=== PATIENT | male | born 1940 | race Caucasian/White ===

== ENCOUNTER → 2018-11-21 | Outpatient (CLI) | payer MEDICARE ==
--- NOTE | 2018-11-21 09:06 | RADIOLOGY REPORT (SQ) ---
EXAM DESCRIPTION: CT CHEST WITH; CT ABD/PELVIS WITH IV ONLY COMPLETED DATE/TIME: 11/21/2018 8:29 am; 11/21/2018 8:19 am REASON FOR STUDY: PROSTATE CA (C61) C61 MALIGNANT NEOPLASM OF PROSTATE COMPARISON: NO PRIOR IMAGING CONTRAST TYPE AND DOSE: contrast/concentration: Isovue 350.00 mg/ml; Total Contrast Delivered: 100.0 ml; Total Saline Delivered: 72.0 ml RENAL FUNCTION: Creatinine 1.4 TECHNIQUE: CT scan of the chest performed using helical scanning technique with dynamic intravenous contrast injection. Images reviewed with lung, soft tissue and bone windows. Reconstructed coronal a nd sagittal MPR images reviewed. All images stored on PACS. CT scan of the abdomen and pelvis performed with intravenous and without oral contrastusing helical s laney technique with dynamic intravenous contrast injection. Images reviewed with lung, soft tissu e and bone windows. Reconstructed coronal and sagittal MPR images reviewed. Delayed images for eval uation of the urinary system also acquired and evaluated. All images stored on PACS. All CT scanners at this facility use dose modulation, iterative reconstruction, and/or weight based d osing when appropriate to reduce radiation dose to as low as reasonably achievable (ALARA). [facility]: Dose Right [facility]: CareDose [facility]: Dose Right [facility]: Teradose 4D [facility]: [employer] RADIATION DOSE: CT Rad equipment meets quality standard of care and radiation dose reduction techniq ues were employed. CTDIvol: 7.0 - 10.2 mGy. DLP: 1398 mGy-cm. . LIMITATIONS: None. FINDINGS: CHEST: LUNGS AND PLEURA: Calcified granuloma left lower lobe. Lungs are otherwise clear. No pleural effusion. No pneumothorax. Airways are patent. HILAR AND MEDIASTINAL STRUCTURES: No identified masses or abnormal nodes. Old benign calcified sub- carinal and left hilar lymph nodes from old granulomatous disease. HEART AND VASCULAR STRUCTURES: No aneurysm or dissection. No central pulmonary emboli. No pericardi al effusion. Minimal calcification at the aortic valve and mitral valve. HARDWARE: None. THYROID AND OTHER SOFT TISSUES: No masses. No adenopathy. BONES: No significant finding. OTHER: No other significant finding. ABDOMEN AND PELVIS: LIVER: Normal size. No masses. No dilated ducts. SPLEEN: Normal size. No focal lesions. PANCREAS: 4 x 2.6 cm cluster of cysts versus cystic mass is present in the tail of the pancreas [facility] . Remainder the pancreas splenic vein, superior mesenteric artery and vein are unremarkable. No adjacent adenopathy GALLBLADDER: Gallstones. No inflammatory changes to suggest cholecystitis. ADRENAL GLANDS: No significant masses or asymmetry. RIGHT KIDNEY AND URETER: No solid masses. No significant calcification. No hydronephrosis or hydroure ter. LEFT KIDNEY AND URETER: No solid masses. No significant calcification. No hydronephrosis or hydrouret er. AORTA AND VESSELS: No aneurysm. No dissection. Renal arteries, SMA, celiac without stenosis. RETROPERITONEUM: No retroperitoneal adenopathy, hemorrhage or masses. BOWEL AND PERITONEAL CAVITY: No masses or inflammatory changes. No free fluid or peritoneal masses. APPENDIX: Normal. ABDOMINAL WALL: There is a right inguinal hernia containing the bladder dome, best shown on axial carlos ges 73-93, coronal images 20-35, and sagittal reconstruction image 33. PELVIS: Right inguinal hernia containing the bladder dome. Prostate within normal limits for size. No pelvic adenopathy. Bladder, rectum unremarkable. BONES: No significant or acute findings. OTHER: No other significant finding. IMPRESSION: Next no CT evidence of widespread metastatic disease given history of prostate cancer Right inguinal hernia containing the bladder dome 4 x 2.6 cm cluster of cysts versus cystic mass at the pancreatic tail. NORMAL CT OF THE ABDOMEN AND PELVIS WITH ORAL AND INTRAVENOUS CONTRAST. TECHNICAL DOCUMENTATION: JOB ID: [id number] Quality ID # 436: Final reports with documentation of one or more dose reduction techniques (e.g., Au tomated exposure control, adjustment of the mA and/or kV according to patient size, use of iterative reconstruction technique) 2010 [employer]- All Rights Reserved Reading location - IP/workstation name: [email or web address]
--- NOTE | 2018-11-21 16:03 | RADIOLOGY REPORT (SQ) ---
EXAM DESCRIPTION: NM WHOLE BODY BONE SCAN COMPLETED DATE/TIME: 11/21/2018 12:43 pm REASON FOR STUDY: PROSTATE CA (C61 C61 MALIGNANT NEOPLASM OF PROSTATE COMPARISON: 11/21/2018 CT chest abdomen pelvis RADIONUCLIDE AND DOSE: 20.6 millicuries Tc99m MDP. The route of agent administration: Intravenous. ADDITIONAL DRUGS AND DOSES: None. TECHNIQUE: Routine delayed images at 3 hour post radionuclide injection acquired of the bony skeleto n including anterior and posterior whole-body projections and additional focused images as needed. LIMITATIONS: None. FINDINGS: BONES: No bone scan uptake worrisome for metastatic disease. Minimal uptake in the AC ashley nts, bilateral knees, bilateral wrists, and lumbar spine in characteristic locations for osteoarthrit is KIDNEYS: Symmetric excretion without obstruction. OTHER: No other significant finding. IMPRESSION: NORMAL BONE SCAN. COMMENT: Quality measure 147: Current bone scan is compared with any available plain radiographs, p rior bone scans, and CT/MRI. TECHNICAL DOCUMENTATION: JOB ID: [id number] [employer]- All Rights Reserved Reading location - IP/workstation name: [email or web address]
== END ==
LOC: RAD 07:39
PROVIDERS: ATTEND Internal Medicine
DX: C61 Malignant neoplasm of prostate (principal)
CPT/HCPCS: 82565; 78306; 71260; 74177; A9561; Q9969

== ENCOUNTER → 2019-02-16 | Outpatient (CLI) | payer MEDICARE ==
--- NOTE | 2019-02-16 12:44 | RADIOLOGY REPORT (SQ) ---
EXAM DESCRIPTION: CT CHEST WITH; CT ABD/PELVIS WITH IV ONLY COMPLETED DATE/TIME: 02/16/2019 9:52 am REASON FOR STUDY: C61 MALIGNANT NEOPLASM OF PROSTATE C61 MALIGNANT NEOPLASM OF PROSTATE COMPARISON: Bone scan 11/21/2018, CT abdomen pelvis 11/21/2018 CONTRAST TYPE AND DOSE: contrast/concentration: Isovue 350.00 mg/ml; Total Contrast Delivered: 100.0 ml; Total Saline Delivered: 72.0 ml RENAL FUNCTION: Creatinine 1.3 TECHNIQUE: CT scan of the chest performed using helical scanning technique with dynamic intravenous contrast injection. Images reviewed with lung, soft tissue and bone windows. Reconstructed coronal a nd sagittal MPR images reviewed. All images stored on PACS. CT scan of the abdomen and pelvis performed with intravenous and without oral contrastusing helical s laney technique with dynamic intravenous contrast injection. Images reviewed with lung, soft tissu e and bone windows. Reconstructed coronal and sagittal MPR images reviewed. Delayed images for eval uation of the urinary system also acquired and evaluated. All images stored on PACS. All CT scanners at this facility use dose modulation, iterative reconstruction, and/or weight based d osing when appropriate to reduce radiation dose to as low as reasonably achievable (ALARA). [facility]: Dose Right [facility]: CareDose [facility]: Dose Right [facility]: Teradose 4D [facility]: [employer] RADIATION DOSE: CT Rad equipment meets quality standard of care and radiation dose reduction techniq ues were employed. CTDIvol: 7.9 - 10.3 mGy. DLP: 1472 mGy-cm. . LIMITATIONS: None. FINDINGS: CHEST: LUNGS AND PLEURA: No opacities, nodules, masses. No pneumothorax. No effusions. HILAR AND MEDIASTINAL STRUCTURES: Old calcified benign lymph nodes in the sub- carinal and left hilar region from granulomatous disease HEART AND VASCULAR STRUCTURES: No aneurysm or dissection. No central pulmonary emboli. No pericardi al effusion. HARDWARE: None. THYROID AND OTHER SOFT TISSUES: No masses. No adenopathy. BONES: No significant finding. OTHER: No other significant finding. ABDOMEN AND PELVIS: LIVER: Normal size. No masses. No dilated ducts. SPLEEN: Normal size. No focal lesions. PANCREAS: 4 x 2.5 cm cluster of versus cystic mass at the tail of the pancreas is unchanged from 2018. No peripancreatic inflammatory changes. Pancreatic duct upper limits of normal. GALLBLADDER: Gallstones. No inflammatory changes to suggest cholecystitis. ADRENAL GLANDS: No significant masses or asymmetry. RIGHT KIDNEY AND URETER: No solid masses. No significant calcification. No hydronephrosis or hydroure ter. LEFT KIDNEY AND URETER: No solid masses. No significant calcification. No hydronephrosis or hydrouret er. AORTA AND VESSELS: No aneurysm. No dissection. Renal arteries, SMA, celiac without stenosis. RETROPERITONEUM: No retroperitoneal adenopathy, hemorrhage or masses. BOWEL AND PERITONEAL CAVITY: No masses or inflammatory changes. No free fluid or peritoneal masses. APPENDIX: Normal. ABDOMINAL WALL: There is a right inguinal hernia containing distal nonobstructed small bowel loops. PELVIS: No mass or free fluid. Normal bladder. No pelvic adenopathy BONES: No significant or acute findings. OTHER: No other significant finding. IMPRESSION: No CT evidence of metastatic disease to the chest abdomen or pelvis given history of [place] TECHNICAL DOCUMENTATION: JOB ID: [id number] Quality ID # 436: Final reports with documentation of one or more dose reduction techniques (e.g., Au tomated exposure control, adjustment of the mA and/or kV according to patient size, use of iterative reconstruction technique) 2010 [employer]- All Rights Reserved Reading location - IP/workstation name: [email or web address]
== END ==
LOC: RAD 09:03
PROVIDERS: ATTEND Internal Medicine Hematology & Oncology
DX: C61 Malignant neoplasm of prostate (principal)
CPT/HCPCS: 71260; 74177; 82565

== ENCOUNTER → 2019-05-22 | Outpatient (CLI) | payer MEDICARE ==
--- NOTE | 2019-05-22 08:48 | RADIOLOGY REPORT (SQ) ---
EXAM DESCRIPTION: CT CHEST WITH COMPLETED DATE/TIME: 05/22/2019 8:19 am REASON FOR STUDY: PROSTATE CA (C61) C61 MALIGNANT NEOPLASM OF PROSTATE COMPARISON: 11/21/2018 TECHNIQUE: CT scan of the chest performed using helical scanning technique with dynamic intravenous contrast injection. Images reviewed with lung, soft tissue and bone windows. Reconstructed coronal and sagittal MPR and MIP images reviewed. All images stored on PACS. All CT scanners at this facility use dose modulation, iterative reconstruction, and/or weight based d osing when appropriate to reduce radiation dose to as low as reasonably achievable (ALARA). [facility]: Dose Right [facility]: CareDose [facility]: Dose Right [facility]: Teradose 4D [facility]: [employer] CONTRAST TYPE AND DOSE: See abdomen RENAL FUNCTION: See abdomen RADIATION DOSE: CT Rad equipment meets quality standard of care and radiation dose reduction techniq ues were employed. CTDIvol: 8.0 - 12.8 mGy. DLP: 1673 mGy-cm. . LIMITATIONS: None. FINDINGS: LUNGS AND PLEURA: No opacities, nodules, masses. No pneumothorax. No effusions. HILAR AND MEDIASTINAL STRUCTURES: Calcified mediastinal and hilar lymph nodes, stable. No new adenop athy. HEART AND VASCULAR STRUCTURES: No aneurysm. No dissection. Scattered coronary normal heart size. N o significant effusion. HARDWARE: None in the chest. UPPER ABDOMEN: See separate report of the CT of the abdomen. THYROID AND OTHER SOFT TISSUES: No masses. No adenopathy. BONES: No new lytic or blastic osseous lesions. Multilevel bulky anterior osteophytes. No acute bon y abnormality. OTHER: No other significant finding. IMPRESSION: No evidence of intrathoracic metastatic disease. No acute intrathoracic process. Chronic findings as above. TECHNICAL DOCUMENTATION: JOB ID: [id number] Quality ID # 436: Final reports with documentation of one or more dose reduction techniques (e.g., Au tomated exposure control, adjustment of the mA and/or kV according to patient size, use of iterative reconstruction technique) 2010 [employer] All Rights Reserved Reading location - IP/workstation name: [email or web address]-
--- NOTE | 2019-05-22 09:11 | RADIOLOGY REPORT (SQ) ---
EXAM DESCRIPTION: CT ABD/PELVIS WITH IV ONLY COMPLETED DATE/TIME: 05/22/2019 8:19 am REASON FOR STUDY: PROSTATE CA (C61) C61 MALIGNANT NEOPLASM OF PROSTATE COMPARISON: 02/16/2019 TECHNIQUE: CT scan of the abdomen and pelvis performed using helical scanning technique with dynamic intravenous contrast injection. No oral contrast. Images reviewed with lung, soft tissue, and bone windows. Reconstructed coronal and sagittal MPR images reviewed. Delayed images for evaluation of the urinary system also acquired. All images stored on PACS. All CT scanners at this facility use dose modulation, iterative reconstruction, and/or weight based d osing when appropriate to reduce radiation dose to as low as reasonably achievable (ALARA). [facility]: Dose Right [facility]: CareDose [facility]: Dose Right [facility]: Teradose 4D [facility]: [employer] CONTRAST TYPE AND DOSE: contrast/concentration: Isovue 350.00 mg/ml; Total Contrast Delivered: 100.0 ml; Total Saline Delivered: 72.0 ml RENAL FUNCTION: GFR > 60. RADIATION DOSE: 1673 mGy cm LIMITATIONS: None. FINDINGS: LOWER CHEST: See separate report of the CT of the chest. LIVER: Normal size. No masses. No dilated ducts. SPLEEN: Normal size. No focal lesions. PANCREAS: No masses. No significant calcifications. No adjacent inflammation or peripancreatic fluid collections. Pancreatic duct not dilated. GALLBLADDER: Small gallstone in the gallbladder. ADRENAL GLANDS: No significant masses or asymmetry. RIGHT KIDNEY AND URETER: No solid masses. No significant calcifications. No hydronephrosis or hyd roureter. LEFT KIDNEY AND URETER: No solid masses. No significant calcifications. No hydronephrosis or hydr oureter. AORTA AND VESSELS: No aneurysm. No dissection. Renal arteries, SMA, celiac without stenosis. Calcifi c atherosclerosis. RETROPERITONEUM: No retroperitoneal adenopathy, hemorrhage or masses. BOWEL AND PERITONEAL CAVITY: No masses or inflammatory changes. No free fluid or peritoneal masses. APPENDIX: Normal. PELVIS: No mass. No free fluid. Normal bladder. ABDOMINAL WALL: No masses. Large right inguinal hernia containing sigmoid colon and bladder. BONES: No significant or acute findings. OTHER: No other significant finding. IMPRESSION: 1. No CT evidence of pelvic mass, lymphadenopathy, or osseous metastatic disease in the setting of prostate malignancy. 2. Chronic incidental findings as above. TECHNICAL DOCUMENTATION: JOB ID: [id number] Quality ID # 436: Final reports with documentation of one or more dose reduction techniques (e.g., Au tomated exposure control, adjustment of the mA and/or kV according to patient size, use of iterative reconstruction technique) 2010 [employer]- All Rights Reserved Reading location - IP/workstation name: [email or web address]
--- NOTE | 2019-05-22 12:31 | RADIOLOGY REPORT (SQ) ---
EXAM DESCRIPTION: NM WHOLE BODY BONE SCAN COMPLETED DATE/TIME: 05/22/2019 11:51 am REASON FOR STUDY: PROSTATE CA (C61 C61 MALIGNANT NEOPLASM OF PROSTATE COMPARISON: 11/21/2018 RADIONUCLIDE AND DOSE: 20 millicuries Tc99m HDP. The route of agent administration: Intravenous. ADDITIONAL DRUGS AND DOSES: None. TECHNIQUE: Routine delayed images at 4 hours post radionuclide injection acquired of the bony skelet on including anterior and posterior whole-body projections and additional focused images as needed. LIMITATIONS: None. FINDINGS: BONES: Mild degenerative uptake in the shoulders and knees and spine. No other significan t areas of abnormal uptake. KIDNEYS: Symmetric excretion without obstruction. OTHER: No other significant finding. IMPRESSION: Findings as above. There is no evidence of metastatic disease to bone. There is no sig nificant interval change. COMMENT: Quality measure 147: Current bone scan is compared with any available plain radiographs, p rior bone scans, and CT/MRI. TECHNICAL DOCUMENTATION: JOB ID: [id number] [employer]- All Rights Reserved Reading location - IP/workstation name: [email or web address]
== END ==
LOC: RAD 07:36
PROVIDERS: ATTEND Physician Assistant Medical
DX: C61 Malignant neoplasm of prostate (principal); K40.90 Unilateral inguinal hernia, without obstruction or gangrene, not specified as recurrent
CPT/HCPCS: 82565; 78306; 71260; 74177; A9561; Q9969

== ENCOUNTER → 2019-11-16 | Outpatient (CLI) | payer MEDICARE ==
--- NOTE | 2019-11-16 09:23 | RADIOLOGY REPORT (SQ) ---
EXAM DESCRIPTION: CT ABD/PELVIS WITH IV ONLY IMAGES COMPLETED DATE/TIME: 11/16/2019 8:30 am REASON FOR STUDY: C61 MALIGNANT NEOPLASM OF PROSTATE C61 MALIGNANT NEOPLASM OF PROSTATE COMPARISON: 05/22/2019 TECHNIQUE: CT scan of the abdomen and pelvis performed using helical scanning technique with dynamic intravenous contrast injection. No oral contrast. Images reviewed with lung, soft tissue, and bone windows. Reconstructed coronal and sagittal MPR images reviewed. Delayed images for evaluation of the urinary system also acquired. All images stored on PACS. All CT scanners at this facility use dose modulation, iterative reconstruction, and/or weight based d osing when appropriate to reduce radiation dose to as low as reasonably achievable (ALARA). [facility]: Dose Right [facility]: CareDose [facility]: Dose Right [facility]: Teradose 4D [facility]: [employer] CONTRAST TYPE AND DOSE: contrast/concentration: Isovue 350.00 mg/ml; Total Contrast Delivered: 100.0 ml; Total Saline Delivered: 72.0 ml RENAL FUNCTION: Creatinine 1.2 RADIATION DOSE: CT Rad equipment meets quality standard of care and radiation dose reduction techniq ues were employed. CTDIvol: 9.2 - 14.2 mGy. DLP: 1895 mGy-cm.. LIMITATIONS: None. FINDINGS: LOWER CHEST: See separate report of the CT of the chest. LIVER: Normal size. No masses. No dilated ducts. SPLEEN: Normal size. Scattered calcified granuloma. PANCREAS: Unchanged 4 x 2.5 cm cluster of cystic lesions within the pancreatic tail from 11/21/18 (seri es 3, image 22). No peripancreatic stranding. GALLBLADDER: Small stone within the gallbladder lumen. No secondary evidence of acute cholecystitis. ADRENAL GLANDS: No significant masses or asymmetry. RIGHT KIDNEY AND URETER: No discrete solid mass. Diffuse cortical thinning. No significant calcifi cations. No hydronephrosis or hydroureter. LEFT KIDNEY AND URETER: No discrete solid mass. Diffuse cortical thinning. No significant calcific ations. No hydronephrosis or hydroureter. AORTA AND VESSELS: Aortoiliac atherosclerosis without aneurysm. Celiac, SMA, bilateral renals and IM A are opacified. RETROPERITONEUM: No discrete adenopathy. BOWEL AND PERITONEAL CAVITY: Small hiatal hernia. No evidence of intestinal obstruction. No focal b owel wall thickening. There is a right inguinal hernia containing a portion of the urinary bladder a nd loops of small bowel. APPENDIX: Appendix is not identified. PELVIS: Right bowel and bladder containing inguinal hernia. Left fat containing inguinal hernia. Un changed calcification within the prostate. No discrete adenopathy. ABDOMINAL WALL: Hernias as above. No discrete soft tissue mass. BONES: No acute bony abnormality. No discrete lytic or blastic osseous lesions. Unchanged sacral Ta rlov cyst. OTHER: No other significant finding. IMPRESSION: 1. No definitive evidence of metastatic disease within the abdomen or pelvis. 2. Unchanged 4 x 2.5 cm cystic lesion within the pancreatic tail from 11/21/2018. 3. Right inguinal hernia containing a portion of the urinary bladder loop of small bowel, stable. A dditional chronic findings as above. TECHNICAL DOCUMENTATION: JOB ID: [id number] Quality ID # 436: Final reports with documentation of one or more dose reduction techniques (e.g., Au tomated exposure control, adjustment of the mA and/or kV according to patient size, use of iterative reconstruction technique) 2010 [employer]- All Rights Reserved Reading location - IP/workstation name: [email or web address]
--- NOTE | 2019-11-16 09:28 | RADIOLOGY REPORT (SQ) ---
EXAM DESCRIPTION: CT CHEST WITH IMAGES COMPLETED DATE/TIME: 11/16/2019 8:41 am REASON FOR STUDY: C61 MALIGNANT NEOPLASM OF PROSTATE C61 MALIGNANT NEOPLASM OF PROSTATE COMPARISON: 05/22/2019 TECHNIQUE: CT scan of the chest performed using helical scanning technique with dynamic intravenous contrast injection. Images reviewed with lung, soft tissue and bone windows. Reconstructed coronal and sagittal MPR and MIP images reviewed. All images stored on PACS. All CT scanners at this facility use dose modulation, iterative reconstruction, and/or weight based d osing when appropriate to reduce radiation dose to as low as reasonably achievable (ALARA). [facility]: Dose Right [facility]: CareDose [facility]: Dose Right [facility]: Teradose 4D [facility]: [employer] CONTRAST TYPE AND DOSE: See abdomen RENAL FUNCTION: See abdomen RADIATION DOSE: . LIMITATIONS: None. FINDINGS: LUNGS AND PLEURA: No focal airspace disease. No pleural effusion or pneumothorax. Unchan ged calcified left lower lobe granuloma. HILAR AND MEDIASTINAL STRUCTURES: No new discrete mediastinal or hilar adenopathy. Stable calcified left hilar and mediastinal adenopathy. HEART AND VASCULAR STRUCTURES: Scattered coronary atherosclerosis. No pericardial effusion. Cardiom egaly, stable. HARDWARE: None in the chest. UPPER ABDOMEN: See separate report of the CT of the abdomen. THYROID AND OTHER SOFT TISSUES: No masses. No adenopathy. BONES: No acute bony abnormality. No discrete lytic or blastic osseous lesions. Multilevel thoracol umbar spondylosis. OTHER: No other significant finding. IMPRESSION: 1. No evidence of metastatic disease within the chest. 2. No evidence of acute intrathoracic process. TECHNICAL DOCUMENTATION: JOB ID: [id number] Quality ID # 436: Final reports with documentation of one or more dose reduction techniques (e.g., Au tomated exposure control, adjustment of the mA and/or kV according to patient size, use of iterative reconstruction technique) 2010 [employer]- All Rights Reserved Reading location - IP/workstation name: [email or web address]
--- NOTE | 2019-11-16 13:04 | RADIOLOGY REPORT (SQ) ---
EXAM DESCRIPTION: NM WHOLE BODY BONE SCAN IMAGES COMPLETED DATE/TIME: 11/16/2019 12:22 pm REASON FOR STUDY: C61 MALIGNANT NEOPLASM OF PROSTATE, K86.9 DISEASE OF PANCREAS, UNSPECIFIED C61 MA LIGNANT NEOPLASM OF PROSTATE COMPARISON: 05/22/2019 bone scan, same day CT RADIONUCLIDE AND DOSE: 1.5 millicuries Tc99m HDP. The route of agent administration: Intravenous. ADDITIONAL DRUGS AND DOSES: None. TECHNIQUE: Routine delayed images at 4 hour post radionuclide injection acquired of the bony skeleto n including anterior and posterior whole-body projections and additional focused images as needed. LIMITATIONS: None. FINDINGS: BONES: Mild uptake at the shoulders knees and ankles in a pattern most consistent with deg enerative change. Mild additional changes along the right thoracolumbar spine likely corresponding t o known multilevel osteophytosis and similar to prior. Otherwise, normal visualization without areas of photopenia or increased bony uptake of radiopharmaceutical. KIDNEYS: Symmetric excretion without obstruction. OTHER: No other significant finding. IMPRESSION: No findings to suggest osseous metastatic disease. COMMENT: Quality measure 147: Current bone scan is compared with any available plain radiographs, p rior bone scans, and CT/MRI. TECHNICAL DOCUMENTATION: JOB ID: [id number] 2010 [employer]- All Rights Reserved Reading location - IP/workstation name: [email or web address]
== END ==
LOC: RAD 07:57
PROVIDERS: ATTEND Physician Assistant Medical
DX: C61 Malignant neoplasm of prostate (principal); C79.51 Secondary malignant neoplasm of bone; K86.9 Disease of pancreas, unspecified; K80.20 Calculus of gallbladder without cholecystitis without obstruction; K40.90 Unilateral inguinal hernia, without obstruction or gangrene, not specified as recurrent
CPT/HCPCS: 82565; 78306; 71260; 74177; A9561; Q9969

== ENCOUNTER → 2020-05-29 | Outpatient (CLI) | payer MEDICARE ==
--- NOTE | 2020-05-29 13:18 | RADIOLOGY REPORT (SQ) ---
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 Images reviewed with lung, soft tissue and bone windows. Reconstructed coronal and sagittal MPR and MIP images reviewed. All images stored on PACS. All CT scanners at this facility use dose modulation, iterative reconstruction, and/or weight based d osing when appropriate to reduce radiation dose to as low as reasonably achievable (ALARA). [facility]: Dose Right [facility]: CareDose [facility]: Dose Right [facility]: Teradose 4D [facility]: [employer] RENAL FUNCTION: GFR > 60. RADIATION DOSE: CT Rad equipment meets quality standard of care and radiation dose reduction techniq ues were employed. CTDIvol: 9.6 - 13.6 mGy. DLP: 1985 mGy-cm. . LIMITATIONS: None. FINDINGS: LUNGS AND PLEURA: No opacities, nodules, masses. No pneumothorax. No effusions. HILAR AND MEDIASTINAL STRUCTURES: No identified masses or abnormal nodes. HEART AND VASCULAR STRUCTURES: No aneurysm or dissection. No central pulmonary emboli. No pericardi al effusion. HARDWARE: None in the chest. UPPER ABDOMEN: See separate report of the CT of the abdomen. THYROID AND OTHER SOFT TISSUES: No masses. No adenopathy. BONES: No acute findings. OTHER: No other significant finding. IMPRESSION: No evidence of metastatic disease. TECHNICAL DOCUMENTATION: JOB ID: [id number] Quality ID # 436: Final reports with documentation of one or more dose reduction techniques (e.g., Au tomated exposure control, adjustment of the mA and/or kV according to patient size, use of iterative reconstruction technique) 2010 [employer]- All Rights Reserved Reading location - IP/workstation name: [email or web address]
--- NOTE | 2020-05-29 13:34 | RADIOLOGY REPORT (SQ) ---
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 No oral contrast. Images reviewed with lung, soft tissue, and bone windows. Reconstructed coronal and sagittal MPR images reviewed. Delayed images for evaluation of the urinary system also acquired. All images stored on PACS. All CT scanners at this facility use dose modulation, iterative reconstruction, and/or weight based d osing when appropriate to reduce radiation dose to as low as reasonably achievable (ALARA). [facility]: Dose Right [facility]: CareDose [facility]: Dose Right [facility]: Teradose 4D [facility]: [employer] CONTRAST TYPE AND DOSE: contrast/concentration: Isovue 350.00 mmol/ml; Total Contrast Delivered: 100 .0 ml; Total Saline Delivered: 72.0 ml RENAL FUNCTION: GFR > 60. RADIATION DOSE: . LIMITATIONS: None. FINDINGS: LOWER CHEST: See separate report of the CT of the chest. LIVER: Normal size. No masses. No dilated ducts. SPLEEN: Normal size. No focal lesions. PANCREAS: Unchanged cluster of cystic lesions in the pancreatic tail. GALLBLADDER: Gallstones. No inflammatory changes to suggest cholecystitis. ADRENAL GLANDS: No significant masses or asymmetry. RIGHT KIDNEY AND URETER: No solid masses. No significant calcifications. No hydronephrosis or hyd roureter. LEFT KIDNEY AND URETER: No solid masses. No significant calcifications. No hydronephrosis or hydr oureter. AORTA AND VESSELS: No aneurysm. No dissection. Renal arteries, SMA, celiac without stenosis. RETROPERITONEUM: No retroperitoneal adenopathy, hemorrhage or masses. BOWEL AND PERITONEAL CAVITY: No masses or inflammatory changes. No free fluid or peritoneal masses. APPENDIX: Not visualized. PELVIS: No pelvic adenopathy. Unchanged appearance of right inguinal hernia containing bowel and por tion of the bladder. ABDOMINAL WALL: See above. BONES: No significant or acute findings. OTHER: No other significant finding. IMPRESSION: 1. No evidence of metastatic disease. 2. Stable cystic lesion tail of the pancreas. TECHNICAL DOCUMENTATION: JOB ID: [id number] Quality ID # 436: Final reports with documentation of one or more dose reduction techniques (e.g., Au tomated exposure control, adjustment of the mA and/or kV according to patient size, use of iterative reconstruction technique) 2010 [employer]- All Rights Reserved Reading location - IP/workstation name: [email or web address]
--- NOTE | 2020-05-29 14:18 | RADIOLOGY REPORT (SQ) ---
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 The route of agent administration: Intravenous. ADDITIONAL DRUGS AND DOSES: None. TECHNIQUE: Routine delayed images at 3 hours post radionuclide injection acquired of the bony skelet on including anterior and posterior whole-body projections and additional focused images as needed. LIMITATIONS: None. FINDINGS: BONES: There is no change in the appearance of the bones. There is what is felt to be mil d degenerative uptake in the shoulders and spine and knees. KIDNEYS: Symmetric excretion without obstruction. OTHER: No other significant finding. IMPRESSION: There is uptake that is stable and is felt to be degenerative. The overall appearance o f the scan does not suggest metastatic disease to bone. COMMENT: Quality measure 147: Current bone scan is compared with any available plain radiographs, p rior bone scans, and CT/MRI. TECHNICAL DOCUMENTATION: JOB ID: [id number] 2010 [employer]- All Rights Reserved Reading location - IP/workstation name: [email or web address]
--- OUTSIDE RECORDS SUMMARY | 2020-05-30 14:58 | XMS REPORT ---
:1940 [facility] [place] [address] [place] [id number] Care Team Providers Name Role Phone Rodrick Brown Attending Clinician Unavailable Allergies, Adverse Reactions, Alerts Allergy Name Allergy Status Severity Reaction(s) Onset Inactive Treat ing Comments Type Date Date Clinician Hydrocodone Allergy Active to Drug (Finding) Oxycodone Allergy Active to Drug (Finding) Medications Ordered Filled Start Stop Current Ordering Indication Dosage Frequency Signature Comments Components Medication Medication Date Date Medication? Clinician (SIG) Name Name Eligard 2019-1 No 0-20 00:00: 00 Influenza 2019- 2020- No .5mL QIV 0-20 - 00:00: 00:00 00 :00 Eligard 2019-1 2020- No 22.5mg Eligard 0-20 05-06 00:00: 00:00 00 :00 Leuprolide 2020-0 No 22.5mg Leuprolide Acetate 7-16 Acetate 00:00: 00 Leuprolide 2019-0 No 22.5mg Leuprolide Acetate 4-23 Acetate 00:00: 00 Leuprolide 2020-0 No 22.5mg Leuprolide Acetate 1-30 Acetate 00:00: 00 Leuprolide 2019-1 No 22.5mg Leuprolide Acetate 1-04 Acetate 00:00: 00 Leuprolide 2019-0 No 22.5mg Leuprolide Acetate 8-09 Acetate 00:00: 00 Leuprolide 2019-0 No 22.5mg Leuprolide Acetate 5-10 Acetate 00:00: 00 XGEVA 2019-0 2020- No 120mg (Denosumab) 2-15 10-20 00:00: 00:00 00 :00 Leuprolide 2019-0 2020- No 22.5mg Leuprolide Acetate 2-15 07-16 Acetate 00:00: 00:00 00 :00 BusPIRone 2019-0 2019- No 1 HCl 2-15 05-29 00:00: 14:20 00 :09 Acetaminoph Yes 1 en Alphagan P Yes 1 Atorvastati Yes 1 n Calcium Atorvastati Yes 1 n Calcium BusPIRone Yes 1 HCl Coreg Yes 1 Norvasc Yes 1 Refresh Yes 1 Sertraline Yes 1 HCl Acetaminoph No 1 en Bicalutamid 2019- No 1 e 05-29 14:21 :25 Lutein 2019- No 2 05-29 14:21 :53 Resveratrol 2019- No 2 Diet 05-29 14:22 :11 Problems Condition Condition Condition Status Onset Resolution Last Treatin g Comments Name Details Category Date Date Treatment Clinician Date Patient Patient Diagnosis active 2019-07 encounter encounter 0-20 status status 00:00: 00 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 5-10 00:00: 00 Dysuria Dysuria Diagnosis active 10-27 00:00: 00 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 Secondary Secondary Diagnosis 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 Procedures Procedure Date / Time Performed Performing Clinician [place] e Prostate bx Cataract Hand surgery Hernia Results Test Description Test Time Test Comments Text Results Atomic Results Result Comments PSA 2020-05-06 13:20:00 Test Item Value Reference Range Comments PSA (test code = PSA) 0.1000 ng/mL 0.0000-4.0000 [id number] 12:50:00 Test Item Value Reference Range Comments WBC (test code = WBC) 7.3000 4.0000-10.0000 Lymphocytes % (test code = Lymphocytes %) 24.1000 % 22.400 0-43.6000 MID% (test code = MID%) 6.1000 % 1.2000-11.2000 Neutrophils % (test code = Neutrophils %) 69.8000 % 48.900 0-69.9000 Lymphocytes (test code = Lymphocytes) 1.7000 1.2000-3.2 000 MID (test code = MID) 0.5000 0.1000-1.1000 Neutrophils (test code = Neutrophils) 5.1000 1.5000-6.7 000 RBC (test code = RBC) 4.4500 3.7000-4.9000 HGB (test code = HGB) 13.5000 g/dL 11.2000-18.0000 HCT (test code = HCT) 39.7000 % 34.0000-44.0000 MCV (test code = MCV) 89.1000 fL 80.0000-94.0000 MCH (test code = MCH) 30.4000 pg 27.0000-34.0000 MCHC (test code = MCHC) 34.1000 g/dL 31.5000-36.0000 RDW (test code = RDW) 15.4000 11.0000-18.0000 PLT (test code = PLT) 247.0000 140.0000-440.0000 MPV (test code = MPV) 8.4000 fL 6.8000-10.6000 [id number] 12:48:00 Test Item Value Reference Range Comments Creatinine (test code = Creatinine) 1.1000 mg/dL 0.5000-1.200 0 Cr Clearance (Est) (test code = Cr 74.3400 85.0000-125.0 000 Clearance (Est)) Glucose (test code = Glucose) 93.0000 mg/dL 70.0000-118.0000 BUN (test code = BUN) 17.0000 mg/dL 7.0000-22.0000 Sodium (test code = Sodium) 137.0000 mmol/L 128.0000-145.0000 Potassium (test code = Potassium) 4.0000 mmol/L 3.6000-5.1000 Chloride (test code = Chloride) 104.0000 mmol/L 96.0000-108.0000 CO2 (test code = CO2) 25.0000 mmol/L 18.0000-33.0000 Calcium (test code = Calcium) 9.6000 mg/dL 8.0000-10.3000 Alkaline Phosphatase (test code = Alkaline 47.0000 42.00 00-141.0000 Phosphatase) ALT (SGPT) (test code = ALT (SGPT)) 17.0000 10.0000-47.0 000 AST (SGOT) (test code = AST (SGOT)) 21.0000 11.0000-37.0 000 Bilirubin, Total (test code = Bilirubin, 0.7000 mg/dL 0.0000- 1.6000 Total) Albumin (test code = Albumin) 4.7000 g/dL 3.5000-5.5000 Protein, Total (test code = Protein, 6.7000 g/dL 6.4000-8.10 00 Total) eGFR -[place]izen [place] (test code = eGFR 78.0000 60.0000- 200.0000 -Citizen [place]) eGFR Byo-Owjdfmt-Qwwyewhp (test code = 64.0000 60.0000-2 00.0000 eGFR Eyy-Lgweeet-Kzrxifyb) [id number] 12:37:00 Test Item Value Reference Range Comments WBC (test code = WBC) 6.9000 4.0000-10.0000 Lymphocytes % (test code = Lymphocytes %) 26.2000 % 22.400 0-43.6000 MID% (test code = MID%) 5.7000 % 1.2000-11.2000 Neutrophils % (test code = Neutrophils %) 68.1000 % 48.900 0-69.9000 Lymphocytes (test code = Lymphocytes) 1.8000 1.2000-3.2 000 MID (test code = MID) 0.4000 0.1000-1.1000 Neutrophils (test code = Neutrophils) 4.7000 1.5000-6.7 000 RBC (test code = RBC) 4.4300 3.7000-4.9000 HGB (test code = HGB) 13.4000 g/dL 11.2000-18.0000 HCT (test code = HCT) 39.7000 % 34.0000-44.0000 MCV (test code = MCV) 89.5000 fL 80.0000-94.0000 MCH (test code = MCH) 30.3000 pg 27.0000-34.0000 MCHC (test code = MCHC) 33.8000 g/dL 31.5000-36.0000 RDW (test code = RDW) 15.4000 11.0000-18.0000 PLT (test code = PLT) 223.0000 140.0000-440.0000 MPV (test code = MPV) 8.1000 fL 6.8000-10.6000 [id number] 12:36:00 Test Item Value Reference Range Comments Creatinine (test code = Creatinine) 1.0000 mg/dL 0.5000-1.200 0 Cr Clearance (Est) (test code = Cr 82.2200 85.0000-125.0 000 Clearance (Est)) Glucose (test code = Glucose) 135.0000 mg/dL 70.0000-118.0000 BUN (test code = BUN) 20.0000 mg/dL 7.0000-22.0000 Sodium (test code = Sodium) 138.0000 mmol/L 128.0000-145.0000 Potassium (test code = Potassium) 4.0000 mmol/L 3.6000-5.1000 Chloride (test code = Chloride) 105.0000 mmol/L 96.0000-108.0000 CO2 (test code = CO2) 25.0000 mmol/L 18.0000-33.0000 Calcium (test code = Calcium) 10.1400 mg/dL 8.0000-10.3000 Alkaline Phosphatase (test code = Alkaline 52.0000 42.00 00-141.0000 Phosphatase) ALT (SGPT) (test code = ALT (SGPT)) 14.0000 10.0000-47.0 000 AST (SGOT) (test code = AST (SGOT)) 17.0000 11.0000-37.0 000 Bilirubin, Total (test code = Bilirubin, 0.6000 mg/dL 0.0000- 1.6000 Total) Albumin (test code = Albumin) 4.7000 g/dL 3.5000-5.5000 Protein, Total (test code = Protein, 7.2000 g/dL 6.4000-8.10 00 Total) eGFR -[place]izen [place] (test code = eGFR 87.0000 60.0000- 200.0000 -Citizen [place]) eGFR Iif-Qngogst-Puxwhhug (test code = 72.0000 60.0000-2 00.0000 eGFR Oei-Xqpinhz-Htfufgek) [id number] 12:49:00 Test Item Value Reference Range Comments WBC (test code = WBC) 6.8000 4.0000-10.0000 Lymphocytes % (test code = Lymphocytes %) 25.4000 % 22.400 0-43.6000 MID% (test code = MID%) 5.9000 % 1.2000-11.2000 Neutrophils % (test code = Neutrophils %) 68.7000 % 48.900 0-69.9000 Lymphocytes (test code = Lymphocytes) 1.7000 1.2000-3.2 000 MID (test code = MID) 0.4000 0.1000-1.1000 Neutrophils (test code = Neutrophils) 4.7000 1.5000-6.7 000 RBC (test code = RBC) 4.3800 3.7000-4.9000 HGB (test code = HGB) 13.3000 g/dL 11.2000-18.0000 HCT (test code = HCT) 38.2000 % 34.0000-44.0000 MCV (test code = MCV) 87.2000 fL 80.0000-94.0000 MCH (test code = MCH) 30.5000 pg 27.0000-34.0000 MCHC (test code = MCHC) 34.9000 g/dL 31.5000-36.0000 RDW (test code = RDW) 14.7000 11.0000-18.0000 PLT (test code = PLT) 218.0000 140.0000-440.0000 MPV (test code = MPV) 7.8000 fL 6.8000-10.6000 [id number] 12:49:00 Test Item Value Reference Range Comments Creatinine (test code = Creatinine) 1.0000 mg/dL 0.5000-1.200 0 Cr Clearance (Est) (test code = Cr 82.8900 85.0000-125.0 000 Clearance (Est)) Glucose (test code = Glucose) 151.0000 mg/dL 70.0000-118.0000 BUN (test code = BUN) 17.0000 mg/dL 7.0000-22.0000 Sodium (test code = Sodium) 136.0000 mmol/L 128.0000-145.0000 Potassium (test code = Potassium) 4.3000 mmol/L 3.6000-5.1000 Chloride (test code = Chloride) 103.0000 mmol/L 96.0000-108.0000 CO2 (test code = CO2) 27.0000 mmol/L 18.0000-33.0000 Calcium (test code = Calcium) 9.2900 mg/dL 8.0000-10.3000 Alkaline Phosphatase (test code = Alkaline 55.0000 42.00 00-141.0000 Phosphatase) ALT (SGPT) (test code = ALT (SGPT)) 18.0000 10.0000-47.0 000 AST (SGOT) (test code = AST (SGOT)) 18.0000 11.0000-37.0 000 Bilirubin, Total (test code = Bilirubin, 0.5000 mg/dL 0.0000- 1.6000 Total) Albumin (test code = Albumin) 4.5000 g/dL 3.5000-5.5000 Protein, Total (test code = Protein, 6.8000 g/dL 6.4000-8.10 00 Total) eGFR -Citizen [place] (test code = eGFR 87.0000 60.0000- 200.0000 -Citizen [place]) eGFR Vwc-Jkpkejc-Qybasrsq (test code = 72.0000 60.0000-2 00.0000 eGFR Gpv-Fqpywtg-Qavcixpd) [id number] 13:08:00 Test Item Value Reference Range Comments WBC (test code = WBC) 8.1000 4.0000-10.0000 Lymphocytes % (test code = Lymphocytes %) 25.0000 % 22.400 0-43.6000 MID% (test code = MID%) 7.2000 % 1.2000-11.2000 Neutrophils % (test code = Neutrophils %) 67.8000 % 48.900 0-69.9000 Lymphocytes (test code = Lymphocytes) 2.0000 1.2000-3.2 000 MID (test code = MID) 0.6000 0.1000-1.1000 Neutrophils (test code = Neutrophils) 5.5000 1.5000-6.7 000 RBC (test code = RBC) 4.3200 3.7000-4.9000 HGB (test code = HGB) 13.4000 g/dL 11.2000-18.0000 HCT (test code = HCT) 39.1000 % 34.0000-44.0000 MCV (test code = MCV) 90.6000 fL 80.0000-94.0000 MCH (test code = MCH) 31.1000 pg 27.0000-34.0000 MCHC (test code = MCHC) 34.3000 g/dL 31.5000-36.0000 RDW (test code = RDW) 14.9000 11.0000-18.0000 PLT (test code = PLT) 252.0000 140.0000-440.0000 MPV (test code = MPV) 7.7000 fL 6.8000-10.6000 [id number] 13:08:00 Test Item Value Reference Range Comments Creatinine (test code = Creatinine) 0.9000 mg/dL 0.5000-1.200 0 Cr Clearance (Est) (test code = Cr 90.7800 85.0000-125.0 000 Clearance (Est)) Glucose (test code = Glucose) 106.0000 mg/dL 70.0000-118.0000 BUN (test code = BUN) 19.0000 mg/dL 7.0000-22.0000 Sodium (test code = Sodium) 134.0000 mmol/L 128.0000-145.0000 Potassium (test code = Potassium) 4.7000 mmol/L 3.6000-5.1000 Chloride (test code = Chloride) 103.0000 mmol/L 96.0000-108.0000 CO2 (test code = CO2) 26.0000 mmol/L 18.0000-33.0000 Calcium (test code = Calcium) 9.8100 mg/dL 8.0000-10.3000 Alkaline Phosphatase (test code = Alkaline 82.0000 42.00 00-141.0000 Phosphatase) ALT (SGPT) (test code = ALT (SGPT)) 15.0000 10.0000-47.0 000 AST (SGOT) (test code = AST (SGOT)) 17.0000 11.0000-37.0 000 Bilirubin, Total (test code = Bilirubin, 0.5000 mg/dL 0.0000- 1.6000 Total) Albumin (test code = Albumin) 4.5000 g/dL 3.5000-5.5000 Protein, Total (test code = Protein, 7.4000 g/dL 6.4000-8.10 00 Total) eGFR -Citizen [place] (test code = eGFR 98.0000 60.0000- 200.0000 -Citizen Of [place]) eGFR Ogg-Kzhiuke-Wdxzwzgr (test code = 81.0000 60.0000-2 00.0000 eGFR Wgd-Lhpwzwh-Yyznayrd) [id number] 14:24:00 Test Item Value Reference Range Comments PSA (test code = PSA) 0.1000 ng/mL 0.0000-4.0000 [id number] 12:50:00 Test Item Value Reference Range Comments WBC (test code = WBC) 7.3000 4.0000-10.0000 Lymphocytes % (test code = Lymphocytes %) 25.0000 % 22.400 0-43.6000 MID% (test code = MID%) 7.0000 % 1.2000-11.2000 Neutrophils % (test code = Neutrophils %) 68.0000 % 48.900 0-69.9000 Lymphocytes (test code = Lymphocytes) 1.8000 1.2000-3.2 000 MID (test code = MID) 0.5000 0.1000-1.1000 Neutrophils (test code = Neutrophils) 5.0000 1.5000-6.7 000 RBC (test code = RBC) 4.2300 3.7000-4.9000 HGB (test code = HGB) 12.7000 g/dL 11.2000-18.0000 HCT (test code = HCT) 38.0000 % 34.0000-44.0000 MCV (test code = MCV) 90.0000 fL 80.0000-94.0000 MCH (test code = MCH) 30.0000 pg 27.0000-34.0000 MCHC (test code = MCHC) 33.3000 g/dL 31.5000-36.0000 RDW (test code = RDW) 14.7000 11.0000-18.0000 PLT (test code = PLT) 266.0000 140.0000-440.0000 MPV (test code = MPV) 8.3000 fL 6.8000-10.6000 [id number] 12:50:00 Test Item Value Reference Range Comments Creatinine (test code = Creatinine) 1.1000 mg/dL 0.5000-1.200 0 Cr Clearance (Est) (test code = Cr 74.4100 85.0000-125.0 000 Clearance (Est)) Glucose (test code = Glucose) 121.0000 mg/dL 70.0000-118.0000 BUN (test code = BUN) 17.0000 mg/dL 7.0000-22.0000 Sodium (test code = Sodium) 136.0000 mmol/L 128.0000-145.0000 Potassium (test code = Potassium) 3.8000 mmol/L 3.6000-5.1000 Chloride (test code = Chloride) 104.0000 mmol/L 96.0000-108.0000 CO2 (test code = CO2) 27.0000 mmol/L 18.0000-33.0000 Calcium (test code = Calcium) 9.3900 mg/dL 8.0000-10.3000 Alkaline Phosphatase (test code = Alkaline 62.0000 42.00 00-141.0000 Phosphatase) ALT (SGPT) (test code = ALT (SGPT)) 17.0000 10.0000-47.0 000 AST (SGOT) (test code = AST (SGOT)) 18.0000 11.0000-37.0 000 Bilirubin, Total (test code = Bilirubin, 0.6000 mg/dL 0.0000- 1.6000 Total) Albumin (test code = Albumin) 4.5000 g/dL 3.5000-5.5000 Protein, Total (test code = Protein, 6.9000 g/dL 6.4000-8.10 00 Total) eGFR -Citizen [place] (test code = eGFR 78.0000 60.0000- 200.0000 -Citizen [place]) eGFR Fkr-Moctiol-Unsifflm (test code = 64.0000 60.0000-2 00.0000 eGFR Obc-Yfsbnme-Akhhjzoy) [id number] 12:48:00 Test Item Value Reference Range Comments Creatinine (test code = Creatinine) 1.1000 mg/dL 0.5000-1.200 0 Cr Clearance (Est) (test code = Cr 74.4800 85.0000-125.0 000 Clearance (Est)) Glucose (test code = Glucose) 149.0000 mg/dL 70.0000-118.0000 BUN (test code = BUN) 20.0000 mg/dL 7.0000-22.0000 Sodium (test code = Sodium) 136.0000 mmol/L 128.0000-145.0000 Potassium (test code = Potassium) 4.1000 mmol/L 3.6000-5.1000 Chloride (test code = Chloride) 106.0000 mmol/L 96.0000-108.0000 CO2 (test code = CO2) 27.0000 mmol/L 18.0000-33.0000 Calcium (test code = Calcium) 9.9000 mg/dL 8.0000-10.3000 Alkaline Phosphatase (test code = Alkaline 56.0000 42.00 00-141.0000 Phosphatase) ALT (SGPT) (test code = ALT (SGPT)) 17.0000 10.0000-47.0 000 AST (SGOT) (test code = AST (SGOT)) 17.0000 11.0000-37.0 000 Bilirubin, Total (test code = Bilirubin, 0.5000 mg/dL 0.0000- 1.6000 Total) Albumin (test code = Albumin) 4.3000 g/dL 3.5000-5.5000 Protein, Total (test code = Protein, 6.6000 g/dL 6.4000-8.10 00 Total) eGFR -Citizen [place] (test code = eGFR 78.0000 60.0000- 200.0000 -Citizen Of [place]) eGFR Bty-Ihfkxta-Klmccjcz (test code = 64.0000 60.0000-2 00.0000 eGFR Ygv-Ypygjrq-Yfkuvmqa) [id number] 12:47:00 Test Item Value Reference Range Comments WBC (test code = WBC) 6.9000 4.0000-10.0000 Lymphocytes % (test code = Lymphocytes %) 24.5000 % 22.400 0-43.6000 MID% (test code = MID%) 6.4000 % 1.2000-11.2000 Neutrophils % (test code = Neutrophils %) 69.1000 % 48.900 0-69.9000 Lymphocytes (test code = Lymphocytes) 1.7000 1.2000-3.2 000 MID (test code = MID) 0.4000 0.1000-1.1000 Neutrophils (test code = Neutrophils) 4.8000 1.5000-6.7 000 RBC (test code = RBC) 4.1800 3.7000-4.9000 HGB (test code = HGB) 12.7000 g/dL 11.2000-18.0000 HCT (test code = HCT) 38.6000 % 34.0000-44.0000 MCV (test code = MCV) 92.1000 fL 80.0000-94.0000 MCH (test code = MCH) 30.4000 pg 27.0000-34.0000 MCHC (test code = MCHC) 32.9000 g/dL 31.5000-36.0000 RDW (test code = RDW) 14.9000 11.0000-18.0000 PLT (test code = PLT) 215.0000 140.0000-440.0000 MPV (test code = MPV) 7.3000 fL 6.8000-10.6000 [id number] 13:34:00 Test Item Value Reference Range Comments WBC (test code = WBC) 7.8000 4.0000-10.0000 Lymphocytes % (test code = Lymphocytes %) 24.1000 % 22.400 0-43.6000 MID% (test code = MID%) 6.0000 % 1.2000-11.2000 Neutrophils % (test code = Neutrophils %) 69.9000 % 48.900 0-69.9000 Lymphocytes (test code = Lymphocytes) 1.8000 1.2000-3.2 000 MID (test code = MID) 0.5000 0.1000-1.1000 Neutrophils (test code = Neutrophils) 5.5000 1.5000-6.7 000 RBC (test code = RBC) 4.3900 3.7000-4.9000 HGB (test code = HGB) 13.5000 g/dL 11.2000-18.0000 HCT (test code = HCT) 40.2000 % 34.0000-44.0000 MCV (test code = MCV) 91.4000 fL 80.0000-94.0000 MCH (test code = MCH) 30.7000 pg 27.0000-34.0000 MCHC (test code = MCHC) 33.6000 g/dL 31.5000-36.0000 RDW (test code = RDW) 14.5000 11.0000-18.0000 PLT (test code = PLT) 213.0000 140.0000-440.0000 MPV (test code = MPV) 7.7000 fL 6.8000-10.6000 [id number] 13:34:00 Test Item Value Reference Range Comments Creatinine (test code = Creatinine) 1.1000 mg/dL 0.5000-1.200 0 Cr Clearance (Est) (test code = Cr 74.3400 85.0000-125.0 000 Clearance (Est)) Glucose (test code = Glucose) 137.0000 mg/dL 70.0000-118.0000 BUN (test code = BUN) 20.0000 mg/dL 7.0000-22.0000 Sodium (test code = Sodium) 135.0000 mmol/L 128.0000-145.0000 Potassium (test code = Potassium) 4.5000 mmol/L 3.6000-5.1000 Chloride (test code = Chloride) 103.0000 mmol/L 96.0000-108.0000 CO2 (test code = CO2) 28.0000 mmol/L 18.0000-33.0000 Calcium (test code = Calcium) 9.7800 mg/dL 8.0000-10.3000 Alkaline Phosphatase (test code = Alkaline 49.0000 42.00 00-141.0000 Phosphatase) ALT (SGPT) (test code = ALT (SGPT)) 17.0000 10.0000-47.0 000 AST (SGOT) (test code = AST (SGOT)) 19.0000 11.0000-37.0 000 Bilirubin, Total (test code = Bilirubin, 0.6000 mg/dL 0.0000- 1.6000 Total) Albumin (test code = Albumin) 4.7000 g/dL 3.5000-5.5000 Protein, Total (test code = Protein, 6.9000 g/dL 6.4000-8.10 00 Total) eGFR -Citizen [place] (test code = eGFR 78.0000 60.0000- 200.0000 -Citizen Of [place]) eGFR Kne-Qlrgtpa-Frapnkry (test code = 64.0000 60.0000-2 00.0000 eGFR Zvk-Dtmlnul-Snnnsapf) [id number] 15:30:00 Test Item Value Reference Range Comments PSA (test code = PSA) 0.1000 ng/mL 0.0000-4.0000 [id number] 13:18:00 Test Item Value Reference Range Comments Creatinine (test code = Creatinine) 1.1000 mg/dL 0.5000-1.200 0 Cr Clearance (Est) (test code = Cr 74.4800 85.0000-125.0 000 Clearance (Est)) Glucose (test code = Glucose) 109.0000 mg/dL 70.0000-118.0000 BUN (test code = BUN) 19.0000 mg/dL 7.0000-22.0000 Sodium (test code = Sodium) 137.0000 mmol/L 128.0000-145.0000 Potassium (test code = Potassium) 4.1000 mmol/L 3.6000-5.1000 Chloride (test code = Chloride) 106.0000 mmol/L 96.0000-108.0000 CO2 (test code = CO2) 26.0000 mmol/L 18.0000-33.0000 Calcium (test code = Calcium) 9.6100 mg/dL 8.0000-10.3000 Alkaline Phosphatase (test code = Alkaline 51.0000 42.00 00-141.0000 Phosphatase) ALT (SGPT) (test code = ALT (SGPT)) 18.0000 10.0000-47.0 000 AST (SGOT) (test code = AST (SGOT)) 20.0000 11.0000-37.0 000 Bilirubin, Total (test code = Bilirubin, 0.8000 mg/dL 0.0000- 1.6000 Total) Albumin (test code = Albumin) 4.6000 g/dL 3.5000-5.5000 Protein, Total (test code = Protein, 7.2000 g/dL 6.4000-8.10 00 Total) eGFR -Citizen [place] (test code = eGFR 78.0000 60.0000- 200.0000 -Citizen Of [place]) eGFR Gmm-Hycrgmi-Gkyniatl (test code = 64.0000 60.0000-2 00.0000 eGFR Ivg-Rzoovou-Txijmcpp) [id number] 13:17:00 Test Item Value Reference Range Comments WBC (test code = WBC) 7.6000 4.0000-10.0000 Lymphocytes % (test code = Lymphocytes %) 22.2000 % 22.400 0-43.6000 MID% (test code = MID%) 6.8000 % 1.2000-11.2000 Neutrophils % (test code = Neutrophils %) 71.0000 % 48.900 0-69.9000 Lymphocytes (test code = Lymphocytes) 1.6000 1.2000-3.2 000 MID (test code = MID) 0.6000 0.1000-1.1000 Neutrophils (test code = Neutrophils) 5.4000 1.5000-6.7 000 RBC (test code = RBC) 4.6100 3.7000-4.9000 HGB (test code = HGB) 13.5000 g/dL 11.2000-18.0000 HCT (test code = HCT) 42.4000 % 34.0000-44.0000 MCV (test code = MCV) 91.9000 fL 80.0000-94.0000 MCH (test code = MCH) 29.3000 pg 27.0000-34.0000 MCHC (test code = MCHC) 31.8000 g/dL 31.5000-36.0000 RDW (test code = RDW) 14.6000 11.0000-18.0000 PLT (test code = PLT) 306.0000 140.0000-440.0000 MPV (test code = MPV) 8.0000 fL 6.8000-10.6000 [id number] 13:35:00 Test Item Value Reference Range Comments WBC (test code = WBC) 7.7000 4.0000-10.0000 Lymphocytes % (test code = Lymphocytes %) 24.7000 % 22.400 0-43.6000 MID% (test code = MID%) 8.1000 % 1.2000-11.2000 Neutrophils % (test code = Neutrophils %) 67.2000 % 48.900 0-69.9000 Lymphocytes (test code = Lymphocytes) 1.9000 1.2000-3.2 000 MID (test code = MID) 0.6000 0.1000-1.1000 Neutrophils (test code = Neutrophils) 5.2000 1.5000-6.7 000 RBC (test code = RBC) 4.4100 3.7000-4.9000 HGB (test code = HGB) 13.4000 g/dL 11.2000-18.0000 HCT (test code = HCT) 41.2000 % 34.0000-44.0000 MCV (test code = MCV) 93.3000 fL 80.0000-94.0000 MCH (test code = MCH) 30.4000 pg 27.0000-34.0000 MCHC (test code = MCHC) 32.5000 g/dL 31.5000-36.0000 RDW (test code = RDW) 14.5000 11.0000-18.0000 PLT (test code = PLT) 232.0000 140.0000-440.0000 MPV (test code = MPV) 8.1000 fL 6.8000-10.6000 [id number] 13:35:00 Test Item Value Reference Range Comments Creatinine (test code = Creatinine) 1.0000 mg/dL 0.5000-1.200 0 Cr Clearance (Est) (test code = Cr 82.2200 85.0000-125.0 000 Clearance (Est)) Glucose (test code = Glucose) 108.0000 mg/dL 70.0000-118.0000 BUN (test code = BUN) 24.0000 mg/dL 7.0000-22.0000 Sodium (test code = Sodium) 137.0000 mmol/L 128.0000-145.0000 Potassium (test code = Potassium) 4.9000 mmol/L 3.6000-5.1000 Chloride (test code = Chloride) 106.0000 mmol/L 96.0000-108.0000 CO2 (test code = CO2) 27.0000 mmol/L 18.0000-33.0000 Calcium (test code = Calcium) 10.3400 mg/dL 8.0000-10.3000 Alkaline Phosphatase (test code = Alkaline 44.0000 42.00 00-141.0000 Phosphatase) ALT (SGPT) (test code = ALT (SGPT)) 19.0000 10.0000-47.0 000 AST (SGOT) (test code = AST (SGOT)) 20.0000 11.0000-37.0 000 Bilirubin, Total (test code = Bilirubin, 0.7000 mg/dL 0.0000- 1.6000 Total) Albumin (test code = Albumin) 4.6000 g/dL 3.5000-5.5000 Protein, Total (test code = Protein, 7.0000 g/dL 6.4000-8.10 00 Total) eGFR -Citizen Of [place] (test code = eGFR 87.0000 60.0000- 200.0000 -Citizen Of [place]) eGFR Fli-Gjsrorc-Mggkaqlf (test code = 72.0000 60.0000-2 00.0000 eGFR Rgr-Kesngrg-Glruifbl) [id number] 13:53:00 Test Item Value Reference Range Comments WBC (test code = WBC) 6.5000 4.0000-10.0000 Lymphocytes % (test code = Lymphocytes %) 24.8000 % 22.400 0-43.6000 MID% (test code = MID%) 7.4000 % 1.2000-11.2000 Neutrophils % (test code = Neutrophils %) 67.8000 % 48.900 0-69.9000 Lymphocytes (test code = Lymphocytes) 1.6000 1.2000-3.2 000 MID (test code = MID) 0.5000 0.1000-1.1000 Neutrophils (test code = Neutrophils) 4.4000 1.5000-6.7 000 RBC (test code = RBC) 4.0800 3.7000-4.9000 HGB (test code = HGB) 12.8000 g/dL 11.2000-18.0000 HCT (test code = HCT) 38.9000 % 34.0000-44.0000 MCV (test code = MCV) 95.1000 fL 80.0000-94.0000 MCH (test code = MCH) 31.4000 pg 27.0000-34.0000 MCHC (test code = MCHC) 33.0000 g/dL 31.5000-36.0000 RDW (test code = RDW) 14.7000 11.0000-18.0000 PLT (test code = PLT) 205.0000 140.0000-440.0000 MPV (test code = MPV) 8.2000 fL 6.8000-10.6000 [id number] 13:53:00 Test Item Value Reference Range Comments Creatinine (test code = Creatinine) 1.1000 mg/dL 0.5000-1.200 0 Cr Clearance (Est) (test code = Cr 74.1400 85.0000-125.0 000 Clearance (Est)) Glucose (test code = Glucose) 123.0000 mg/dL 70.0000-118.0000 BUN (test code = BUN) 21.0000 mg/dL 7.0000-22.0000 Sodium (test code = Sodium) 138.0000 mmol/L 128.0000-145.0000 Potassium (test code = Potassium) 4.2000 mmol/L 3.6000-5.1000 Chloride (test code = Chloride) 103.0000 mmol/L 96.0000-108.0000 CO2 (test code = CO2) 28.0000 mmol/L 18.0000-33.0000 Calcium (test code = Calcium) 9.9600 mg/dL 8.0000-10.3000 Alkaline Phosphatase (test code = Alkaline 45.0000 42.00 00-141.0000 Phosphatase) ALT (SGPT) (test code = ALT (SGPT)) 18.0000 10.0000-47.0 000 AST (SGOT) (test code = AST (SGOT)) 20.0000 11.0000-37.0 000 Bilirubin, Total (test code = Bilirubin, 0.5000 mg/dL 0.0000- 1.6000 Total) Albumin (test code = Albumin) 4.5000 g/dL 3.5000-5.5000 Protein, Total (test code = Protein, 6.6000 g/dL 6.4000-8.10 00 Total) eGFR -Citizen [place] (test code = eGFR 78.0000 60.0000- 200.0000 -Citizen Of [place]) eGFR Ssp-Prfvffi-Aleiqchr (test code = 64.0000 60.0000-2 00.0000 eGFR Erg-Dmubzdc-Bwuvwlhy) [id number] 13:18:00 Test Item Value Reference Range Comments WBC (test code = WBC) 7.5000 4.0000-10.0000 Lymphocytes % (test code = Lymphocytes %) 25.7000 % 22.400 0-43.6000 MID% (test code = MID%) 7.1000 % 1.2000-11.2000 Neutrophils % (test code = Neutrophils %) 67.2000 % 48.900 0-69.9000 Lymphocytes (test code = Lymphocytes) 1.9000 1.2000-3.2 000 MID (test code = MID) 0.6000 0.1000-1.1000 Neutrophils (test code = Neutrophils) 5.0000 1.5000-6.7 000 RBC (test code = RBC) 4.2100 3.7000-4.9000 HGB (test code = HGB) 13.3000 g/dL 11.2000-18.0000 HCT (test code = HCT) 38.8000 % 34.0000-44.0000 MCV (test code = MCV) 92.1000 fL 80.0000-94.0000 MCH (test code = MCH) 31.6000 pg 27.0000-34.0000 MCHC (test code = MCHC) 34.3000 g/dL 31.5000-36.0000 RDW (test code = RDW) 14.6000 11.0000-18.0000 PLT (test code = PLT) 227.0000 140.0000-440.0000 MPV (test code = MPV) 7.7000 fL 6.8000-10.6000 [id number] 13:17:00 Test Item Value Reference Range Comments Creatinine (test code = Creatinine) 1.0000 mg/dL 0.5000-1.200 0 Cr Clearance (Est) (test code = Cr 82.7400 85.0000-125.0 000 Clearance (Est)) Glucose (test code = Glucose) 133.0000 mg/dL 70.0000-118.0000 BUN (test code = BUN) 17.0000 mg/dL 7.0000-22.0000 Sodium (test code = Sodium) 139.0000 mmol/L 128.0000-145.0000 Potassium (test code = Potassium) 4.5000 mmol/L 3.6000-5.1000 Chloride (test code = Chloride) 103.0000 mmol/L 96.0000-108.0000 CO2 (test code = CO2) 29.0000 mmol/L 18.0000-33.0000 Calcium (test code = Calcium) 9.2800 mg/dL 8.0000-10.3000 Alkaline Phosphatase (test code = Alkaline 41.0000 42.00 00-141.0000 Phosphatase) ALT (SGPT) (test code = ALT (SGPT)) 18.0000 10.0000-47.0 000 AST (SGOT) (test code = AST (SGOT)) 18.0000 11.0000-37.0 000 Bilirubin, Total (test code = Bilirubin, 0.7000 mg/dL 0.0000- 1.6000 Total) Albumin (test code = Albumin) 4.5000 g/dL 3.5000-5.5000 Protein, Total (test code = Protein, 6.9000 g/dL 6.4000-8.10 00 Total) eGFR -[place]izen [place] (test code = eGFR 87.0000 60.0000- 200.0000 -Citizen [place]) eGFR Eqa-Zbjnlut-Ebtbxvrl (test code = 72.0000 60.0000-2 00.0000 eGFR Aax-Ptfazyt-Zgucrpww) [id number] 13:53:00 Test Item Value Reference Range Comments PSA (test code = PSA) 0.1000 ng/mL 0.0000-4.0000 [id number] 12:30:00 Test Item Value Reference Range Comments Creatinine (test code = Creatinine) 1.1000 mg/dL 0.5000-1.200 0 Cr Clearance (Est) (test code = Cr 73.3300 85.0000-125.0 000 Clearance (Est)) Glucose (test code = Glucose) 151.0000 mg/dL 70.0000-118.0000 BUN (test code = BUN) 17.0000 mg/dL 7.0000-22.0000 Sodium (test code = Sodium) 139.0000 mmol/L 128.0000-145.0000 Potassium (test code = Potassium) 4.1000 mmol/L 3.6000-5.1000 Chloride (test code = Chloride) 105.0000 mmol/L 96.0000-108.0000 CO2 (test code = CO2) 29.0000 mmol/L 18.0000-33.0000 Calcium (test code = Calcium) 9.4400 mg/dL 8.0000-10.3000 Alkaline Phosphatase (test code = Alkaline 41.0000 42.00 00-141.0000 Phosphatase) ALT (SGPT) (test code = ALT (SGPT)) 20.0000 10.0000-47.0 000 AST (SGOT) (test code = AST (SGOT)) 21.0000 11.0000-37.0 000 Bilirubin, Total (test code = Bilirubin, 0.6000 mg/dL 0.0000- 1.6000 Total) Albumin (test code = Albumin) 4.7000 g/dL 3.5000-5.5000 Protein, Total (test code = Protein, 7.2000 g/dL 6.4000-8.10 00 Total) eGFR -[place]izen [place] (test code = eGFR 78.0000 60.0000- 200.0000 -Citizen Of [place]) eGFR Eww-Ulwhaiv-Upmjwdtp (test code = 64.0000 60.0000-2 00.0000 eGFR Tzg-Xwqssna-Xioobosh) [id number] 12:29:00 Test Item Value Reference Range Comments WBC (test code = WBC) 6.9000 4.0000-10.0000 Lymphocytes % (test code = Lymphocytes %) 22.8000 % 22.400 0-43.6000 MID% (test code = MID%) 6.1000 % 1.2000-11.2000 Neutrophils % (test code = Neutrophils %) 71.1000 % 48.900 0-69.9000 Lymphocytes (test code = Lymphocytes) 1.5000 1.2000-3.2 000 MID (test code = MID) 0.5000 0.1000-1.1000 Neutrophils (test code = Neutrophils) 4.9000 1.5000-6.7 000 RBC (test code = RBC) 4.8200 3.7000-4.9000 HGB (test code = HGB) 13.9000 g/dL 11.2000-18.0000 HCT (test code = HCT) 45.1000 % 34.0000-44.0000 MCV (test code = MCV) 93.6000 fL 80.0000-94.0000 MCH (test code = MCH) 28.8000 pg 27.0000-34.0000 MCHC (test code = MCHC) 30.7000 g/dL 31.5000-36.0000 RDW (test code = RDW) 15.4000 11.0000-18.0000 PLT (test code = PLT) 246.0000 140.0000-440.0000 MPV (test code = MPV) 8.2000 fL 6.8000-10.6000 [id number] 14:05:00 Test Item Value Reference Range Comments Creatinine (test code = Creatinine) 1.2000 mg/dL 0.5000-1.200 0 Cr Clearance (Est) (test code = Cr 67.5900 85.0000-125.0 000 Clearance (Est)) Glucose (test code = Glucose) 128.0000 mg/dL 70.0000-118.0000 BUN (test code = BUN) 21.0000 mg/dL 7.0000-22.0000 Sodium (test code = Sodium) 133.0000 mmol/L 128.0000-145.0000 Potassium (test code = Potassium) 4.5000 mmol/L 3.6000-5.1000 Chloride (test code = Chloride) 107.0000 mmol/L 96.0000-108.0000 CO2 (test code = CO2) 20.0000 mmol/L 18.0000-33.0000 Calcium (test code = Calcium) 9.8000 mg/dL 8.0000-10.3000 Alkaline Phosphatase (test code = Alkaline 41.0000 42.00 00-141.0000 Phosphatase) ALT (SGPT) (test code = ALT (SGPT)) 23.0000 10.0000-47.0 000 AST (SGOT) (test code = AST (SGOT)) 32.0000 11.0000-37.0 000 Bilirubin, Total (test code = Bilirubin, 0.7000 mg/dL 0.0000- 1.6000 Total) Albumin (test code = Albumin) 4.1000 g/dL 3.5000-5.5000 Protein, Total (test code = Protein, 7.3000 g/dL 6.4000-8.10 00 Total) eGFR -[place]izen [place] (test code = eGFR 70.0000 60.0000- 200.0000 -Citizen [place]) eGFR Qux-Dsbhgtt-Isppnfsy (test code = 58.0000 60.0000-2 00.0000 eGFR Fzd-Pnkrqld-Ezppptoz) [id number] 14:04:00 Test Item Value Reference Range Comments WBC (test code = WBC) 6.1000 4.0000-10.0000 Lymphocytes % (test code = Lymphocytes %) 29.6000 % 22.400 0-43.6000 MID% (test code = MID%) 7.4000 % .1999- Neutrophils % (test code = Neutrophils %) 63.0000 % 48.900 0-69.9000 Lymphocytes (test code = Lymphocytes) 1.8000 1.2000-3.2 000 MID (test code = MID) 0.4000 0.1000-1.1000 Neutrophils (test code = Neutrophils) 3.9000 1.5000-6.7 000 RBC (test code = RBC) 4.2200 3.7000-4.9000 HGB (test code = HGB) 13.0000 g/dL 11.2000-18.0000 HCT (test code = HCT) 39.4000 % 34.0000-44.0000 MCV (test code = MCV) 93.2000 fL 80.0000-94.0000 MCH (test code = MCH) 30.8000 pg 27.0000-34.0000 MCHC (test code = MCHC) 33.1000 g/dL 31.5000-36.0000 RDW (test code = RDW) 15.1000 11.0000-18.0000 PLT (test code = PLT) 215.0000 140.0000-440.0000 MPV (test code = MPV) 7.6000 fL 6.8000-10.6000 [id number] 14:02:00 Test Item Value Reference Range Comments WBC (test code = WBC) 5.9000 4.0000-10.0000 Lymphocytes % (test code = Lymphocytes %) 28.3000 % 22.400 0-43.6000 MID% (test code = MID%) 7.1000 % .1999- Neutrophils % (test code = Neutrophils %) 64.6000 % 48.900 0-69.9000 Lymphocytes (test code = Lymphocytes) 1.6000 1.2000-3.2 000 MID (test code = MID) 0.5000 0.1000-1.1000 Neutrophils (test code = Neutrophils) 3.8000 1.5000-6.7 000 RBC (test code = RBC) 4.5500 3.7000-4.9000 HGB (test code = HGB) 13.2000 g/dL 11.2000-18.0000 HCT (test code = HCT) 42.4000 % 34.0000-44.0000 MCV (test code = MCV) 93.2000 fL 80.0000-94.0000 MCH (test code = MCH) 29.1000 pg 27.0000-34.0000 MCHC (test code = MCHC) 31.2000 g/dL 31.5000-36.0000 RDW (test code = RDW) 15.1000 11.0000-18.0000 PLT (test code = PLT) 249.0000 140.0000-440.0000 MPV (test code = MPV) 7.6000 fL 6.8000-10.6000 [id number] 14:02:00 Test Item Value Reference Range Comments Creatinine (test code = Creatinine) 1.0000 mg/dL 0.5000-1.200 0 Cr Clearance (Est) (test code = Cr 80.4400 85.0000-125.0 000 Clearance (Est)) Glucose (test code = Glucose) 107.0000 mg/dL 70.0000-118.0000 BUN (test code = BUN) 16.0000 mg/dL 7.0000-22.0000 Sodium (test code = Sodium) 138.0000 mmol/L 128.0000-145.0000 Potassium (test code = Potassium) 3.9000 mmol/L 3.6000-5.1000 Chloride (test code = Chloride) 100.0000 mmol/L 96.0000-108.0000 CO2 (test code = CO2) 28.0000 mmol/L 18.0000-33.0000 Calcium (test code = Calcium) 9.3500 mg/dL 8.0000-10.3000 Alkaline Phosphatase (test code = Alkaline 37.0000 42.00 00-141.0000 Phosphatase) ALT (SGPT) (test code = ALT (SGPT)) 19.0000 10.0000-47.0 000 AST (SGOT) (test code = AST (SGOT)) 21.0000 11.0000-37.0 000 Bilirubin, Total (test code = Bilirubin, 0.7000 mg/dL 0.0000- 1.6000 Total) Albumin (test code = Albumin) 4.6000 g/dL 3.5000-5.5000 Protein, Total (test code = Protein, 6.5000 g/dL 6.4000-8.10 00 Total) eGFR -Citizen [place] (test code = eGFR 87.0000 60.0000- 200.0000 -Citizen Of [place]) eGFR Zcl-Wmjzrlg-Ijstlxdt (test code = 72.0000 60.0000-2 00.0000 eGFR Imw-Vtlqcbo-Vmrkmqbf) [id number] 15:19:00 Test Item Value Reference Range Comments PSA (test code = PSA) 0.1000 ng/mL 0.0000-4.0000 [id number] 13:30:00 Test Item Value Reference Range Comments WBC (test code = WBC) 5.7000 4.0000-10.0000 Lymphocytes % (test code = Lymphocytes %) 33.8000 % 22.400 0-43.6000 MID% (test code = MID%) 6.5000 % 1.2000-11.2000 Neutrophils % (test code = Neutrophils %) 59.7000 % 48.900 0-69.9000 Lymphocytes (test code = Lymphocytes) 1.9000 1.2000-3.2 000 MID (test code = MID) 0.4000 0.1000-1.1000 Neutrophils (test code = Neutrophils) 3.4000 1.5000-6.7 000 RBC (test code = RBC) 4.4000 3.7000-4.9000 HGB (test code = HGB) 13.8000 g/dL 11.2000-18.0000 HCT (test code = HCT) 40.7000 % 34.0000-44.0000 MCV (test code = MCV) 92.4000 fL 80.0000-94.0000 MCH (test code = MCH) 31.3000 pg 27.0000-34.0000 MCHC (test code = MCHC) 33.8000 g/dL 31.5000-36.0000 RDW (test code = RDW) 14.2000 11.0000-18.0000 PLT (test code = PLT) 233.0000 140.0000-440.0000 MPV (test code = MPV) 7.7000 fL 6.8000-10.6000 [id number] 12:56:00 Test Item Value Reference Range Comments Creatinine (test code = Creatinine) 1.3000 mg/dL 0.5000-1.200 0 Cr Clearance (Est) (test code = Cr 63.0400 85.0000-125.0 000 Clearance (Est)) Glucose (test code = Glucose) 152.0000 mg/dL 70.0000-118.0000 BUN (test code = BUN) 23.0000 mg/dL 7.0000-22.0000 Sodium (test code = Sodium) 140.0000 mmol/L 128.0000-145.0000 Potassium (test code = Potassium) 4.5000 mmol/L 3.6000-5.1000 Chloride (test code = Chloride) 106.0000 mmol/L 96.0000-108.0000 CO2 (test code = CO2) 27.0000 mmol/L 18.0000-33.0000 Calcium (test code = Calcium) 9.4700 mg/dL 8.0000-10.3000 Alkaline Phosphatase (test code = Alkaline 44.0000 42.00 00-141.0000 Phosphatase) ALT (SGPT) (test code = ALT (SGPT)) 16.0000 10.0000-47.0 000 AST (SGOT) (test code = AST (SGOT)) 15.0000 11.0000-37.0 000 Bilirubin, Total (test code = Bilirubin, 0.5000 mg/dL 0.0000- 1.6000 Total) Albumin (test code = Albumin) 4.4000 g/dL 3.5000-5.5000 Protein, Total (test code = Protein, 7.1000 g/dL 6.4000-8.10 00 Total) eGFR -Citizen [place] (test code = eGFR 64.0000 60.0000- 200.0000 -Citizen [place]) eGFR Slh-Xcfayck-Whrjifjh (test code = 53.0000 60.0000-2 00.0000 eGFR Bzm-Hbrmvir-Nywbpnqt) [id number] 12:55:00 Test Item Value Reference Range Comments WBC (test code = WBC) 7.3000 4.0000-10.0000 Lymphocytes % (test code = Lymphocytes %) 27.7000 % 22.400 0-43.6000 MID% (test code = MID%) 7.2000 % 1.2000-11.2000 Neutrophils % (test code = Neutrophils %) 65.1000 % 48.900 0-69.9000 Lymphocytes (test code = Lymphocytes) 2.0000 1.2000-3.2 000 MID (test code = MID) 0.5000 0.1000-1.1000 Neutrophils (test code = Neutrophils) 4.8000 1.5000-6.7 000 RBC (test code = RBC) 4.6200 3.7000-4.9000 HGB (test code = HGB) 13.6000 g/dL 11.2000-18.0000 HCT (test code = HCT) 42.4000 % 34.0000-44.0000 MCV (test code = MCV) 91.6000 fL 80.0000-94.0000 MCH (test code = MCH) 29.4000 pg 27.0000-34.0000 MCHC (test code = MCHC) 32.1000 g/dL 31.5000-36.0000 RDW (test code = RDW) 15.0000 11.0000-18.0000 PLT (test code = PLT) 250.0000 140.0000-440.0000 MPV (test code = MPV) 8.5000 fL 6.8000-10.6000 [id number] 13:01:00 Test Item Value Reference Range Comments WBC (test code = WBC) 6.3000 4.0000-10.0000 Lymphocytes % (test code = Lymphocytes %) 25.9000 % 22.400 0-43.6000 MID% (test code = MID%) 6.6000 % 1.2000-11.2000 Neutrophils % (test code = Neutrophils %) 67.5000 % 48.900 0-69.9000 Lymphocytes (test code = Lymphocytes) 1.6000 1.2000-3.2 000 MID (test code = MID) 0.5000 0.1000-1.1000 Neutrophils (test code = Neutrophils) 4.2000 1.5000-6.7 000 RBC (test code = RBC) 4.3800 3.7000-4.9000 HGB (test code = HGB) 13.3000 g/dL 11.2000-18.0000 HCT (test code = HCT) 40.3000 % 34.0000-44.0000 MCV (test code = MCV) 92.0000 fL 80.0000-94.0000 MCH (test code = MCH) 30.4000 pg 27.0000-34.0000 MCHC (test code = MCHC) 33.1000 g/dL 31.5000-36.0000 RDW (test code = RDW) 14.9000 11.0000-18.0000 PLT (test code = PLT) 242.0000 140.0000-440.0000 MPV (test code = MPV) 7.3000 fL 6.8000-10.6000 [id number] 13:01:00 Test Item Value Reference Range Comments Creatinine (test code = Creatinine) 1.3000 mg/dL 0.5000-1.200 0 Cr Clearance (Est) (test code = Cr 61.8200 85.0000-125.0 000 Clearance (Est)) Glucose (test code = Glucose) 121.0000 mg/dL 70.0000-118.0000 BUN (test code = BUN) 20.0000 mg/dL 7.0000-22.0000 Sodium (test code = Sodium) 137.0000 mmol/L 128.0000-145.0000 Potassium (test code = Potassium) 3.7000 mmol/L 3.6000-5.1000 Chloride (test code = Chloride) 106.0000 mmol/L 96.0000-108.0000 CO2 (test code = CO2) 30.0000 mmol/L 18.0000-33.0000 Calcium (test code = Calcium) 9.9600 mg/dL 8.0000-10.3000 Alkaline Phosphatase (test code = Alkaline 43.0000 42.00 00-141.0000 Phosphatase) ALT (SGPT) (test code = ALT (SGPT)) 16.0000 10.0000-47.0 000 AST (SGOT) (test code = AST (SGOT)) 20.0000 11.0000-37.0 000 Bilirubin, Total (test code = Bilirubin, 0.6000 mg/dL 0.0000- 1.6000 Total) Albumin (test code = Albumin) 4.4000 g/dL 3.5000-5.5000 Protein, Total (test code = Protein, 6.6000 g/dL 6.4000-8.10 00 Total) eGFR -Citizen [place] (test code = eGFR 64.0000 60.0000- 200.0000 -Citizen Of [place]) eGFR Xge-Ucvffbv-Prigdfhw (test code = 53.0000 60.0000-2 00.0000 eGFR Tay-Kxdqbnh-Pyyhsrpa) [id number] 15:05:00 Test Item Value Reference Range Comments PSA (test code = PSA) 0.1000 ng/mL 0.0000-4.0000 [id number] 13:51:00 Test Item Value Reference Range Comments WBC (test code = WBC) 6.4000 4.0000-10.0000 Lymphocytes % (test code = Lymphocytes %) 29.8000 % 22.400 0-43.6000 MID% (test code = MID%) 7.0000 % 1.2000-11.2000 Neutrophils % (test code = Neutrophils %) 63.2000 % 48.900 0-69.9000 Lymphocytes (test code = Lymphocytes) 1.9000 1.2000-3.2 000 MID (test code = MID) 0.5000 0.1000-1.1000 Neutrophils (test code = Neutrophils) 4.0000 1.5000-6.7 000 RBC (test code = RBC) 4.3700 3.7000-4.9000 HGB (test code = HGB) 12.8000 g/dL 11.2000-18.0000 HCT (test code = HCT) 39.9000 % 34.0000-44.0000 MCV (test code = MCV) 91.4000 fL 80.0000-94.0000 MCH (test code = MCH) 29.4000 pg 27.0000-34.0000 MCHC (test code = MCHC) 32.1000 g/dL 31.5000-36.0000 RDW (test code = RDW) 15.1000 11.0000-18.0000 PLT (test code = PLT) 236.0000 140.0000-440.0000 MPV (test code = MPV) 8.0000 fL 6.8000-10.6000 [id number] 13:51:00 Test Item Value Reference Range Comments Creatinine (test code = Creatinine) 1.2000 mg/dL 0.5000-1.200 0 Cr Clearance (Est) (test code = Cr 65.9600 85.0000-125.0 000 Clearance (Est)) Glucose (test code = Glucose) 105.0000 mg/dL 70.0000-118.0000 BUN (test code = BUN) 20.0000 mg/dL 7.0000-22.0000 Sodium (test code = Sodium) 140.0000 mmol/L 128.0000-145.0000 Potassium (test code = Potassium) 4.4000 mmol/L 3.6000-5.1000 Chloride (test code = Chloride) 105.0000 mmol/L 96.0000-108.0000 CO2 (test code = CO2) 29.0000 mmol/L 18.0000-33.0000 Calcium (test code = Calcium) 10.1300 mg/dL 8.0000-10.3000 Alkaline Phosphatase (test code = Alkaline 45.0000 42.00 00-141.0000 Phosphatase) ALT (SGPT) (test code = ALT (SGPT)) 23.0000 10.0000-47.0 000 AST (SGOT) (test code = AST (SGOT)) 20.0000 11.0000-37.0 000 Bilirubin, Total (test code = Bilirubin, 0.6000 mg/dL 0.0000- 1.6000 Total) Albumin (test code = Albumin) 4.5000 g/dL 3.5000-5.5000 Protein, Total (test code = Protein, 6.7000 g/dL 6.4000-8.10 00 Total) eGFR -Citizen [place] (test code = eGFR 70.0000 60.0000- 200.0000 -Citizen Of [place]) eGFR Ooz-Tdetqhv-Dsnbftfp (test code = 58.0000 60.0000-2 00.0000 eGFR Jhs-Phjxehp-Iunvaaaj) [id number] 13:52:00 Test Item Value Reference Range Comments WBC (test code = WBC) 5.6000 4.0000-10.0000 Lymphocytes % (test code = Lymphocytes %) 30.3000 % 22.400 0-43.6000 MID% (test code = MID%) 7.6000 % 1.2000-11.2000 Neutrophils % (test code = Neutrophils %) 62.1000 % 48.900 0-69.9000 Lymphocytes (test code = Lymphocytes) 1.7000 1.2000-3.2 000 MID (test code = MID) 0.4000 0.1000-1.1000 Neutrophils (test code = Neutrophils) 3.5000 1.5000-6.7 000 RBC (test code = RBC) 4.0000 3.7000-4.9000 HGB (test code = HGB) 12.5000 g/dL 11.2000-18.0000 HCT (test code = HCT) 36.3000 % 34.0000-44.0000 MCV (test code = MCV) 90.7000 fL 80.0000-94.0000 MCH (test code = MCH) 31.3000 pg 27.0000-34.0000 MCHC (test code = MCHC) 34.5000 g/dL 31.5000-36.0000 RDW (test code = RDW) 14.6000 11.0000-18.0000 PLT (test code = PLT) 198.0000 140.0000-440.0000 MPV (test code = MPV) 8.1000 fL 6.8000-10.6000 [id number] 13:52:00 Test Item Value Reference Range Comments Creatinine (test code = Creatinine) 1.2000 mg/dL 0.5000-1.200 0 Cr Clearance (Est) (test code = Cr 64.1300 85.0000-125.0 000 Clearance (Est)) Glucose (test code = Glucose) 113.0000 mg/dL 70.0000-118.0000 BUN (test code = BUN) 21.0000 mg/dL 7.0000-22.0000 Sodium (test code = Sodium) 142.0000 mmol/L 128.0000-145.0000 Potassium (test code = Potassium) 4.3000 mmol/L 3.6000-5.1000 Chloride (test code = Chloride) 103.0000 mmol/L 96.0000-108.0000 CO2 (test code = CO2) 27.0000 mmol/L 18.0000-33.0000 Calcium (test code = Calcium) 9.6700 mg/dL 8.0000-10.3000 Alkaline Phosphatase (test code = Alkaline 42.0000 42.00 00-141.0000 Phosphatase) ALT (SGPT) (test code = ALT (SGPT)) 16.0000 10.0000-47.0 000 AST (SGOT) (test code = AST (SGOT)) 22.0000 11.0000-37.0 000 Bilirubin, Total (test code = Bilirubin, 0.8000 mg/dL 0.0000- 1.6000 Total) Albumin (test code = Albumin) 4.6000 g/dL 3.5000-5.5000 Protein, Total (test code = Protein, 7.0000 g/dL 6.4000-8.10 00 Total) eGFR -Citizen [place] (test code = eGFR 70.0000 60.0000- 200.0000 -Citizen [place]) eGFR Vtc-Eraqxbj-Mwrblgih (test code = 58.0000 60.0000-2 00.0000 eGFR Nfc-Feysqbl-Lgtogbip) [id number] 12:48:00 Test Item Value Reference Range Comments Creatinine (test code = Creatinine) 1.2000 mg/dL 0.5000-1.200 0 Cr Clearance (Est) (test code = Cr 64.8900 85.0000-125.0 000 Clearance (Est)) Glucose (test code = Glucose) 104.0000 mg/dL 70.0000-118.0000 BUN (test code = BUN) 20.0000 mg/dL 7.0000-22.0000 Sodium (test code = Sodium) 139.0000 mmol/L 128.0000-145.0000 Potassium (test code = Potassium) 4.3000 mmol/L 3.6000-5.1000 Chloride (test code = Chloride) 103.0000 mmol/L 96.0000-108.0000 CO2 (test code = CO2) 28.0000 mmol/L 18.0000-33.0000 Calcium (test code = Calcium) 9.7200 mg/dL 8.0000-10.3000 Alkaline Phosphatase (test code = Alkaline 40.0000 42.00 00-141.0000 Phosphatase) ALT (SGPT) (test code = ALT (SGPT)) 18.0000 10.0000-47.0 000 AST (SGOT) (test code = AST (SGOT)) 21.0000 11.0000-37.0 000 Bilirubin, Total (test code = Bilirubin, 0.6000 mg/dL 0.0000- 1.6000 Total) Albumin (test code = Albumin) 4.7000 g/dL 3.5000-5.5000 Protein, Total (test code = Protein, 7.1000 g/dL 6.4000-8.10 00 Total) eGFR -Citizen [place] (test code = eGFR 70.0000 60.0000- 200.0000 -Citizen Of [place]) eGFR Cwn-Bwphhnt-Vvjeqidc (test code = 58.0000 60.0000-2 00.0000 eGFR Yxj-Ektpiex-Ijjncrxw) [id number] 12:47:00 Test Item Value Reference Range Comments WBC (test code = WBC) 6.3000 4.0000-10.0000 Lymphocytes % (test code = Lymphocytes %) 26.7000 % 22.400 0-43.6000 MID% (test code = MID%) 7.3000 % 1.2000-11.2000 Neutrophils % (test code = Neutrophils %) 66.0000 % 48.900 0-69.9000 Lymphocytes (test code = Lymphocytes) 1.7000 1.2000-3.2 000 MID (test code = MID) 0.4000 0.1000-1.1000 Neutrophils (test code = Neutrophils) 4.2000 1.5000-6.7 000 RBC (test code = RBC) 4.1700 3.7000-4.9000 HGB (test code = HGB) 13.0000 g/dL 11.2000-18.0000 HCT (test code = HCT) 38.4000 % 34.0000-44.0000 MCV (test code = MCV) 91.9000 fL 80.0000-94.0000 MCH (test code = MCH) 31.2000 pg 27.0000-34.0000 MCHC (test code = MCHC) 33.9000 g/dL 31.5000-36.0000 RDW (test code = RDW) 14.9000 11.0000-18.0000 PLT (test code = PLT) 194.0000 140.0000-440.0000 MPV (test code = MPV) 8.3000 fL 6.8000-10.6000 T4, [id number] 13:51:00 Test Item Value Reference Range Comments T4, Free (test code = T4, Free) 1.0000 ng/dL 0.8200-1.7700 TSH (test code = TSH) 5.0500 0.4500-4.5000 Cholesterol, Total (test code = 221.0000 mg/dL 100.0000-199.000 0 Cholesterol, Total) T3, Free (test code = T3, Free) 2.5000 pg/mL 2.0000-4.4000 [id number] 13:51:00 Test Item Value Reference Range Comments PSA (test code = PSA) 0.1000 ng/mL 0.0000-4.0000 [id number] 12:44:00 Test Item Value Reference Range Comments WBC (test code = WBC) 6.0000 4.0000-10.0000 Lymphocytes % (test code = Lymphocytes %) 30.3000 % 22.400 0-43.6000 MID% (test code = MID%) 8.5000 % 1.2000-11.2000 Neutrophils % (test code = Neutrophils %) 61.2000 % 48.900 0-69.9000 Lymphocytes (test code = Lymphocytes) 1.8000 1.2000-3.2 000 MID (test code = MID) 0.6000 0.1000-1.1000 Neutrophils (test code = Neutrophils) 3.6000 1.5000-6.7 000 RBC (test code = RBC) 3.6400 3.7000-4.9000 HGB (test code = HGB) 11.9000 g/dL 11.2000-18.0000 HCT (test code = HCT) 32.6000 % 34.0000-44.0000 MCV (test code = MCV) 89.6000 fL 80.0000-94.0000 MCH (test code = MCH) 32.8000 pg 27.0000-34.0000 MCHC (test code = MCHC) 36.6000 g/dL 31.5000-36.0000 RDW (test code = RDW) 14.5000 11.0000-18.0000 PLT (test code = PLT) 182.0000 140.0000-440.0000 MPV (test code = MPV) 8.2000 fL 6.8000-10.6000 [id number] 12:44:00 Test Item Value Reference Range Comments Creatinine (test code = Creatinine) 1.3000 mg/dL 0.5000-1.200 0 Cr Clearance (Est) (test code = Cr 59.3200 85.0000-125.0 000 Clearance (Est)) Glucose (test code = Glucose) 113.0000 mg/dL 70.0000-118.0000 BUN (test code = BUN) 19.0000 mg/dL 7.0000-22.0000 Sodium (test code = Sodium) 140.0000 mmol/L 128.0000-145.0000 Potassium (test code = Potassium) 5.0000 mmol/L 3.6000-5.1000 Chloride (test code = Chloride) 105.0000 mmol/L 96.0000-108.0000 CO2 (test code = CO2) 24.0000 mmol/L 18.0000-33.0000 Calcium (test code = Calcium) 9.3700 mg/dL 8.0000-10.3000 Alkaline Phosphatase (test code = Alkaline 38.0000 42.00 00-141.0000 Phosphatase) ALT (SGPT) (test code = ALT (SGPT)) 16.0000 10.0000-47.0 000 AST (SGOT) (test code = AST (SGOT)) 19.0000 11.0000-37.0 000 Bilirubin, Total (test code = Bilirubin, 0.6000 mg/dL 0.0000- 1.6000 Total) Albumin (test code = Albumin) 4.4000 g/dL 3.5000-5.5000 Protein, Total (test code = Protein, 7.0000 g/dL 6.4000-8.10 00 Total) eGFR -Citizen Of [place] (test code = eGFR 64.0000 60.0000- 200.0000 -Citizen Of [place]) eGFR Nbj-Rnwyiar-Fvlqxyqb (test code = 53.0000 60.0000-2 00.0000 eGFR Xxi-Jkludly-Erjoiltn) U [id number] 14:08:00 Test Item Value Reference Range Comments U Color (test code = U Color) Yellow U Urobilinogen (test code = U Urobilinogen) 0.2 U Specific [place] (test code = U Specific [place]) 1.0100 U Appearance (test code = U Appearance) Clear U Glucose (test code = U Glucose) Negative U Bilirubin (test code = U Bilirubin) Negative U Ketones (test code = U Ketones) Negative U Blood (test code = U Blood) Negative U pH (test code = U pH) 5.5000 5.0000-8.0000 U Protein (test code = U Protein) Negative U Nitrite (test code = U Nitrite) Negative U Leuk Esterase (test code = U Leuk Esterase) Negative [id number] 12:58:00 Test Item Value Reference Range Comments WBC (test code = WBC) 5.8000 4.0000-10.0000 Lymphocytes % (test code = Lymphocytes %) 28.1000 % 22.400 0-43.6000 MID% (test code = MID%) 7.5000 % 1.2000-11.2000 Neutrophils % (test code = Neutrophils %) 64.4000 % 48.900 0-69.9000 Lymphocytes (test code = Lymphocytes) 1.6000 1.2000-3.2 000 MID (test code = MID) 0.5000 0.1000-1.1000 Neutrophils (test code = Neutrophils) 3.7000 1.5000-6.7 000 RBC (test code = RBC) 4.0200 3.7000-4.9000 HGB (test code = HGB) 12.0000 g/dL 11.2000-18.0000 HCT (test code = HCT) 36.2000 % 34.0000-44.0000 MCV (test code = MCV) 89.9000 fL 80.0000-94.0000 MCH (test code = MCH) 29.8000 pg 27.0000-34.0000 MCHC (test code = MCHC) 33.1000 g/dL 31.5000-36.0000 RDW (test code = RDW) 14.7000 11.0000-18.0000 PLT (test code = PLT) 178.0000 140.0000-440.0000 MPV (test code = MPV) 7.7000 fL 6.8000-10.6000 [id number] 12:58:00 Test Item Value Reference Range Comments Creatinine (test code = Creatinine) 1.2000 mg/dL 0.5000-1.200 0 Cr Clearance (Est) (test code = Cr 64.5800 85.0000-125.0 000 Clearance (Est)) Glucose (test code = Glucose) 129.0000 mg/dL 70.0000-118.0000 BUN (test code = BUN) 20.0000 mg/dL 7.0000-22.0000 Sodium (test code = Sodium) 141.0000 mmol/L 128.0000-145.0000 Potassium (test code = Potassium) 4.4000 mmol/L 3.6000-5.1000 Chloride (test code = Chloride) 105.0000 mmol/L 96.0000-108.0000 CO2 (test code = CO2) 24.0000 mmol/L 18.0000-33.0000 Calcium (test code = Calcium) 10.3600 mg/dL 8.0000-10.3000 Alkaline Phosphatase (test code = Alkaline 43.0000 42.00 00-141.0000 Phosphatase) ALT (SGPT) (test code = ALT (SGPT)) 16.0000 10.0000-47.0 000 AST (SGOT) (test code = AST (SGOT)) 22.0000 11.0000-37.0 000 Bilirubin, Total (test code = Bilirubin, 0.5000 mg/dL 0.0000- 1.6000 Total) Albumin (test code = Albumin) 4.4000 g/dL 3.5000-5.5000 Protein, Total (test code = Protein, 6.7000 g/dL 6.4000-8.10 00 Total) eGFR -Citizen Of [place] (test code = eGFR 70.0000 60.0000- 200.0000 -Citizen Of [place]) eGFR Beg-Dveufcr-Dlmmxcmy (test code = 58.0000 60.0000-2 00.0000 eGFR Bod-Cmiqxko-Ssuhwjuu) [id number] 14:02:00 Test Item Value Reference Range Comments WBC (test code = WBC) 5.7000 4.0000-10.0000 Lymphocytes % (test code = Lymphocytes %) 29.9000 % 22.400 0-43.6000 MID% (test code = MID%) 5.8000 % 1.2000-11.2000 Neutrophils % (test code = Neutrophils %) 64.3000 % 48.900 0-69.9000 Lymphocytes (test code = Lymphocytes) 1.7000 1.2000-3.2 000 MID (test code = MID) 0.3000 0.1000-1.1000 Neutrophils (test code = Neutrophils) 3.7000 1.5000-6.7 000 RBC (test code = RBC) 3.7200 3.7000-4.9000 HGB (test code = HGB) 11.5000 g/dL 11.2000-18.0000 HCT (test code = HCT) 33.5000 % 34.0000-44.0000 MCV (test code = MCV) 90.0000 fL 80.0000-94.0000 MCH (test code = MCH) 31.1000 pg 27.0000-34.0000 MCHC (test code = MCHC) 34.5000 g/dL 31.5000-36.0000 RDW (test code = RDW) 13.9000 11.0000-18.0000 PLT (test code = PLT) 202.0000 140.0000-440.0000 MPV (test code = MPV) 8.1000 fL 6.8000-10.6000 [id number] 14:01:00 Test Item Value Reference Range Comments Creatinine (test code = Creatinine) 1.4000 mg/dL 0.5000-1.200 0 Cr Clearance (Est) (test code = Cr 54.1600 85.0000-125.0 000 Clearance (Est)) Glucose (test code = Glucose) 106.0000 mg/dL 70.0000-118.0000 BUN (test code = BUN) 20.0000 mg/dL 7.0000-22.0000 Sodium (test code = Sodium) 138.0000 mmol/L 128.0000-145.0000 Potassium (test code = Potassium) 4.5000 mmol/L 3.6000-5.1000 Chloride (test code = Chloride) 111.0000 mmol/L 96.0000-108.0000 CO2 (test code = CO2) 24.0000 mmol/L 18.0000-33.0000 Calcium (test code = Calcium) 9.8700 mg/dL 8.0000-10.3000 Alkaline Phosphatase (test code = Alkaline 45.0000 42.00 00-141.0000 Phosphatase) ALT (SGPT) (test code = ALT (SGPT)) 15.0000 10.0000-47.0 000 AST (SGOT) (test code = AST (SGOT)) 16.0000 11.0000-37.0 000 Bilirubin, Total (test code = Bilirubin, 0.5000 mg/dL 0.0000- 1.6000 Total) Albumin (test code = Albumin) 4.2000 g/dL 3.5000-5.5000 Protein, Total (test code = Protein, 6.3000 g/dL 6.4000-8.10 00 Total) eGFR -Citizen [place] (test code = eGFR 59.0000 60.0000- 200.0000 -Citizen Of [place]) eGFR Sqd-Upvmjyb-Qiorwotb (test code = 49.0000 60.0000-2 00.0000 eGFR Gyo-Frtvmff-Knbzqdip) [id number] 11:41:00 Test Item Value Reference Range Comments Creatinine (test code = Creatinine) 1.7300 mg/dL 0.7600-1.270 0 Cr Clearance (Est) (test code = Cr 42.4800 85.0000-125.0 000 Clearance (Est)) Glucose (test code = Glucose) 79.0000 mg/dL 65.0000-99.0000 BUN (test code = BUN) 22.0000 mg/dL 8.0000-27.0000 eGFR Yer-Asbnhkl-Goraikxo (test code = 36.0000 eGFR Pbx-Urixuqe-Yijrdltg) eGFR -Citizen [place] (test code = eGFR 42.0000 -Citizen Of [place]) BUN/Creat Ratio (test code = BUN/Creat 13.0000 10.0000-2 4.0000 Ratio) Sodium (test code = Sodium) 140.0000 mmol/L 134.0000-144.0000 Potassium (test code = Potassium) 4.3000 mmol/L 3.5000-5.2000 Chloride (test code = Chloride) 103.0000 mmol/L 96.0000-106.0000 CO2 (test code = CO2) 21.0000 mmol/L 20.0000-29.0000 Calcium (test code = Calcium) 10.5000 mg/dL 8.6000-10.2000 Protein, Total (test code = Protein, 7.0000 g/dL 6.0000-8.50 00 Total) Albumin (test code = Albumin) 4.3000 g/dL 3.5000-4.7000 Globulin (test code = Globulin) 2.7000 g/dL 1.5000-4.5000 A/G Ratio (test code = A/G Ratio) 1.6000 1.2000-2.2000 Bilirubin, Total (test code = Bilirubin, 0.4000 mg/dL 0.0000- 1.2000 Total) Alkaline Phosphatase (test code = 68.0000 39.0000-117.00 00 Alkaline Phosphatase) AST (SGOT) (test code = AST (SGOT)) 23.0000 0.0000-40.00 00 ALT (SGPT) (test code = ALT (SGPT)) 18.0000 0.0000-44.00 00 Iron, Total (test code = Iron, Total) 103.0000 38.0000-16 9.0000 TIBC (test code = TIBC) 319.0000 250.0000-450.0000 UIBC (test code = UIBC) 216.0000 111.0000-343.0000 % Iron Saturation (test code = % Iron 32.0000 % 15.0000-55 .0000 Saturation) Vitamin B12 (test code = Vitamin B12) 837.0000 pg/mL 232.0000-1 245.0000 Folate (test code = Folate) 10.8000 ng/mL Ferritin (test code = Ferritin) 543.0000 ng/mL 30.0000-400.0000 [id number] 11:41:00 Test Item Value Reference Range Comments PSA (test code = PSA) 0.5000 ng/mL 0.0000-4.0000 [id number] 11:10:00 Test Item Value Reference Range Comments WBC (test code = WBC) 7.0000 4.0000-10.0000 Lymphocytes % (test code = Lymphocytes %) 27.8000 % 22.400 0-43.6000 MID% (test code = MID%) 7.0000 % 1.2000-11.2000 Neutrophils % (test code = Neutrophils %) 65.2000 % 48.900 0-69.9000 Lymphocytes (test code = Lymphocytes) 1.9000 1.2000-3.2 000 MID (test code = MID) 0.6000 0.1000-1.1000 Neutrophils (test code = Neutrophils) 4.5000 1.5000-6.7 000 RBC (test code = RBC) 3.8500 3.7000-4.9000 HGB (test code = HGB) 11.9000 g/dL 11.2000-18.0000 HCT (test code = HCT) 35.0000 % 34.0000-44.0000 MCV (test code = MCV) 90.9000 fL 80.0000-94.0000 MCH (test code = MCH) 31.0000 pg 27.0000-34.0000 MCHC (test code = MCHC) 34.1000 g/dL 31.5000-36.0000 RDW (test code = RDW) 14.4000 11.0000-18.0000 PLT (test code = PLT) 212.0000 140.0000-440.0000 MPV (test code = MPV) 7.5000 fL 6.8000-10.6000 Encounters Start End Encounter Admission Attending Care Care Encounter Date/Time Date/Time Type Type Clinicians Facility Department ID 2020-05-06 2020-05-06 Mrs. Rodrick James [facility] [id number] 00:00:00 00:00:00 [facility] Oncology Oncology [facility] 2020-04-08 2020-04-08 Outpatient Raheem Mensah Sharon rn [id number] 00:00:00 00:00:00 [facility] Oncology Oncology [facility] 2020-03-11 2020-03-11 Outpatient RashadRaheem irving Sharon rn [id number] 00:00:00 00:00:00 [facility] Oncology Oncology [facility] 2020-02-12 2020-02-12 Outpatient Raheem Mensah Sharon rn [id number] 00:00:00 00:00:00 [facility] Oncology Oncology [facility] 2020-01-31 2020-01-31 AndraeMrs. Raheem macario n [id number] 00:00:00 00:00:00 Kalpana [facility] Oncology Oncology [facility] 2020-01-30 2020-01-30 Outpatient Raheem Waltonchristina n [id number] 00:00:00 00:00:00 [facility] Oncology Oncology [facility] 2020-01-15 2020-01-15 Outpatient Raheem Maciel n [id number] 00:00:00 00:00:00 [facility] Medical Oncology Oncology [facility] 2019-12-18 2019-12-18 Outpatient Raheem Waltonchristina n [id number] 00:00:00 00:00:00 [facility] Medical Oncology Oncology [facility] 2019-11-20 2019-11-20 Rodrick Mensah [facility] Chrystal [id number] 00:00:00 00:00:00 Dr. John garrido [facility] Oncology Oncology [facility] 2019-11-08 2019-11-08 Outpatient Raheem Waltonchristina garrido [id number] 00:00:00 00:00:00 [facility] On[facility] [place] 2019-11-07 2019-11-07 Outpatient Raheem Waltoner n [id number] 00:00:00 00:00:00 [facility] Oncology [facility]cology [facility] [place] 2019-10-23 2019-10-23 Outpatient Raheem Mensahe rn [id number] 00:00:00 00:00:00 [facility] Oncology Oncology [facility] 2019-10-18 2019-10-18 Outpatient Raheem Waltonchristina n [id number] 00:00:00 00:00:00 [facility] Oncology Oncology [facility] [place] 2019-09-25 2019-09-25 Outpatient RashadRaheem irving Antone rn [id number] 00:00:00 00:00:00 [facility] Oncology Oncology [facility] 2019-08-28 2019-08-28 Outpatient Rashadmaria fernanda Antonchristina Waltone rn [id number] 00:00:00 00:00:00 [facility] Oncology Oncology [facility] 2019-08-16 2019-08-16 Ed Mensahsid Antonchristina [facility] [id number] 00:00:00 00:00:00 Dr. Lopez [facility] Oncology Oncology [facility] 2019-08-13 2019-08-13 Outpatient Rashadmaria fernanda Antonchristina Waltone rn [id number] 00:00:00 00:00:00 [facility] Oncology Oncology [facility] 2019-07-31 2019-07-31 Outpatient Rashadmaria fernanda Antonchristina Waltone rn [id number] 00:00:00 00:00:00 [facility] Oncology Oncology [facility] 2019-07-24 2019-07-24 Outpatient EdsidRaheeme rn [id number] 00:00:00 00:00:00 [facility] Oncology Oncology [facility] 2019-07-03 2019-07-03 Outpatient EdsidRaheeme rn [id number] 00:00:00 00:00:00 [facility] Oncology Oncology [facility] 2019-06-26 2019-06-26 Outpatient Edsid Antonchristina Waltone rn [id number] 00:00:00 00:00:00 [facility] Oncology Oncology [facility] 2019-05-29 2019-05-29 Dr. Rodrick Bennett [facility] [id number] 00:00:00 00:00:00 Nury Osorio [facility] Oncology Oncology [facility] 2019 2019 Outpatient RashadRaheem irvingtiff rn [id number] 00:00:00 00:00:00 [facility] Oncology Oncology [facility] 2019-05-23 2019-05-23 Outpatient Raheem Maciel n [id number] 00:00:00 00:00:00 [facility] Oncology Oncology [facility] 2019-05-21 2019-05-21 Outpatient Rashadmaria fernanda Raheem Sharon rn [id number] 00:00:00 00:00:00 [facility] Oncology Oncology [facility] 2019-05-18 2019-05-18 Outpatient RashadRaheem irvingtiff rn [id number] 00:00:00 00:00:00 [facility] Oncology Oncology [facility] 2019-04-30 2019-04-30 Smooth Raheem Jarrell 2 [id number] 00:00:00 00:00:00 Bebe [facility] Oncology Oncology [facility] 2019-04-02 2019-04-02 EdsidRashadmaria fernanda Raheem Chrystal [id number] 00:00:00 00:00:00 Dr. Lopez [facility] Oncology Oncology [facility] 2019-03-23 2019-03-23 Outpatient Rashadmaria fernanda Raheem Sharon rn [id number] 00:00:00 00:00:00 [facility] Oncology Oncology [facility] 2019-03-16 2019-03-16 Outpatient Raheem Maciel n [id number] 00:00:00 00:00:00 [facility] Oncology Oncology [facility] 2019-02-23 2019-02-23 Erika Mrs. Mensah Raheem Waltontiff rn [id number] 00:00:00 00:00:00 Kalpana Camilo [facility] Oncology Oncology [facility] 2019-02-16 2019-02-16 Outpatient Rashadmaria fernanda Raheem Waltontiff rn [id number] 00:00:00 00:00:00 [facility] Oncology Oncology [facility] 2019-01-26 2019-01-26 Erika Mrs. Raheem Waltonchristina n [id number] 00:00:00 00:00:00 Kalpana A [facility] Oncology Oncology [facility] 2019-01-19 2019-01-19 Outpatient Raheem Maciel n [id number] 00:00:00 00:00:00 [facility] On[facility] [place] 2019-01-01 2019-01-01 Outpatient [facility] n [id number] 00:00:00 00:00:00 [facility] On[facility]cology [facility] [place] 2018-12-22 2018-12-22 Kast, Mrs. Mensah [facility] Ant[place]iff rn [id number] 00:00:00 00:00:00 [facility] [place] 2018-12-08 2018-12-08 Kasrenaldo, Anton Barnett [place] rn [id number] 00:00:00 00:00:00 [facility] [place] 2018-11-27 2018-11-27 Outpatient [facility] Anton n [id number] 00:00:00 00:00:00 [facility] Oncology Oncology [facility] 2018-11-24 2018-11-24 Edsid [facility] [id number] 00:00:00 00:00:00 Dr. Lopez [facility] Oncology Oncology [facility] 2018-11-21 2018-11-21 Outpatient [facility] Anton n [id number] 00:00:00 00:00:00 [facility] Oncology Oncology [facility] 2018-10-27 2018-10-27 Erika, Mrs. Mensah [facility] [place] rn [id number] 00:00:00 00:00:00 [facility] 2018-09-29 2018-09-29 Rodrick Rivas [facility] [id number] 00:00:00 00:00:00 Tanya [facility] Oncology Oncology [facility] [place] 2018-09-01 2018-09-01 Rodrick Rivas [facility] [id number] 00:00:00 00:00:00 Tanya [facility] Oncology Oncology [facility] 2018-08-31 2018-08-31 Outpatient [facility] n [id number] 00:00:00 00:00:00 [facility] Oncology Oncology [facility] 2018-08-24 2018-08-24 Outpatient [facility] n [id number] 00:00:00 00:00:00 [facility] On[facility]cology [facility] [place] 2018-08-23 2018-08-23 Rodrick Rivas [facility] [id number] 00:00:00 00:00:00 Tanya John n [facility] [place] 2018-08-14 2018-08-14 Outpatient Antoner Antoner n [id number] 00:00:00 00:00:00 n [facility] Medical Oncology Oncology [facility] [place] 2018-08-11 2018-08-11 Outpatient Antoner Antoner n [id number] 00:00:00 00:00:00 n [facility] Medical Oncology Oncology [facility] [place] 2018-08-10 2018-08-10 Outpatient Antoner Antoner n [id number] 00:00:00 00:00:00 Medical Medical Oncology Oncology [facility] [place] 2018-07-14 2018-07-14 Outpatient Antoner Antoner n [id number] 00:00:00 00:00:00 [facility] Medical Oncology Oncology [facility] [place] 2018-07-11 2018-07-11 Outpatient Antoner Antoner n [id number] 00:00:00 00:00:00 [facility] Medical Oncology Oncology [facility] [place] 2018-07-08 2018-07-08 Outpatient Raheem Waltoner n [id number] 00:00:00 00:00:00 [facility] Medical Oncology Oncology [facility] [place] 2018-07-07 2018-07-07 Outpatient Antoner Antoner n [id number] 00:00:00 00:00:00 [facility] Medical Oncology Oncology [facility] 2018-07-06 2018-07-06 Outpatient Raheem Waltoner n [id number] 00:00:00 00:00:00 [facility] Oncology Oncology [facility] Social History Smoking Status Start Date Stop Date Yes - but quit (former) 2020-01-31 00:00:00 2020-01-31 00:00 :00 Social History Observation Description Sex Male Vital Signs Vital Name Observation Time Observation Value Comments BMI 2020-05-06 13:09:49 29.0300 BP boo 2020-05-06 13:09:49 80.0000 mm[Hg] Bdy height 2020-05-06 13:09:49 73.0000 [in_i] SaO2% BldA PulseOx 2020-05-06 13:09:49 98.0000 % Heart rate 2020-05-06 13:09:49 62.0000 /min Resp rate 2020-05-06 13:09:49 18.0000 /min BP sys 2020-05-06 13:09:49 155.0000 mm[Hg] Body temperature 2020-05-06 13:09:49 97.4000 [degF] Weight 2020-05-06 13:09:49 220.0000 [lb_av] BMI 2020-04-08 13:10:51 29.1800 BP boo 2020-04-08 13:10:51 76.0000 mm[Hg] Bdy height 2020-04-08 13:10:51 73.0000 [in_i] SaO2% BldA PulseOx 2020-04-08 13:10:51 96.0000 % Heart rate 2020-04-08 13:10:51 54.0000 /min Resp rate 2020-04-08 13:10:51 16.0000 /min BP sys 2020-04-08 13:10:51 164.0000 mm[Hg] Body temperature 2020-04-08 13:10:51 97.2000 [degF] Weight 2020-04-08 13:10:51 221.2000 [lb_av] BMI 2020-03-11 13:15:47 29.4200 BP boo 2020-03-11 13:15:47 78.0000 mm[Hg] Bdy height 2020-03-11 13:15:47 73.0000 [in_i] SaO2% BldA PulseOx 2020-03-11 13:15:47 96.0000 % Heart rate 2020-03-11 13:15:47 58.0000 /min Resp rate 2020-03-11 13:15:47 16.0000 /min BP sys 2020-03-11 13:15:47 152.0000 mm[Hg] Body temperature 2020-03-11 13:15:47 98.8000 [degF] Weight 2020-03-11 13:15:47 223.0000 [lb_av] Bdy height 2020-02-12 13:17:33 73.0000 [in_i] SaO2% BldA PulseOx 2020-02-12 13:17:33 97.0000 % Heart rate 2020-02-12 13:17:33 57.0000 /min Resp rate 2020-02-12 13:17:33 16.0000 /min BP sys 2020-02-12 13:17:33 165.0000 mm[Hg] Body temperature 2020-02-12 13:17:33 98.3000 [degF] Weight 2020-02-12 13:17:33 219.8000 [lb_av] BMI 2020-02-12 13:17:33 29.0000 BP boo 2020-02-12 13:17:33 81.0000 mm[Hg] BMI 2020-01-31 13:08:49 29.0500 BP boo 2020-01-31 13:08:49 73.0000 mm[Hg] Bdy height 2020-01-31 13:08:49 73.0000 [in_i] Heart rate 2020-01-31 13:08:49 57.0000 /min Resp rate 2020-01-31 13:08:49 14.0000 /min BP sys 2020-01-31 13:08:49 154.0000 mm[Hg] Body temperature 2020-01-31 13:08:49 98.1000 [degF] Weight 2020-01-31 13:08:49 220.2000 [lb_av] BMI 2020-01-15 13:11:44 29.0800 BP boo 2020-01-15 13:11:44 71.0000 mm[Hg] Bdy height 2020-01-15 13:11:44 73.0000 [in_i] SaO2% BldA PulseOx 2020-01-15 13:11:44 97.0000 % Heart rate 2020-01-15 13:11:44 61.0000 /min Resp rate 2020-01-15 13:11:44 20.0000 /min BP sys 2020-01-15 13:11:44 152.0000 mm[Hg] Body temperature 2020-01-15 13:11:44 97.7000 [degF] Weight 2020-01-15 13:11:44 220.4000 [lb_av] BMI 2019-12-18 13:32:46 29.0300 BP boo 2019-12-18 13:32:46 85.0000 mm[Hg] Bdy height 2019-12-18 13:32:46 73.0000 [in_i] Heart rate 2019-12-18 13:32:46 64.0000 /min Resp rate 2019-12-18 13:32:46 18.0000 /min BP sys 2019-12-18 13:32:46 178.0000 mm[Hg] Body temperature 2019-12-18 13:32:46 98.4000 [degF] Weight 2019-12-18 13:32:46 220.0000 [lb_av] BMI 2019-11-20 13:14:12 29.0800 BP boo 2019-11-20 13:14:12 84.0000 mm[Hg] Bdy height 2019-11-20 13:14:12 73.0000 [in_i] SaO2% BldA PulseOx 2019-11-20 13:14:12 96.0000 % Heart rate 2019-11-20 13:14:12 66.0000 /min Resp rate 2019-11-20 13:14:12 20.0000 /min BP sys 2019-11-20 13:14:12 158.0000 mm[Hg] Body temperature 2019-11-20 13:14:12 98.0000 [degF] Weight 2019-11-20 13:14:12 220.4000 [lb_av] BMI 2019-11-08 13:09:03 29.3400 BP boo 2019-11-08 13:09:03 90.0000 mm[Hg] Bdy height 2019-11-08 13:09:03 73.0000 [in_i] SaO2% BldA PulseOx 2019-11-08 13:09:03 97.0000 % Heart rate 2019-11-08 13:09:03 63.0000 /min Resp rate 2019-11-08 13:09:03 16.0000 /min BP sys 2019-11-08 13:09:03 169.0000 mm[Hg] Body temperature 2019-11-08 13:09:03 97.3000 [degF] Weight 2019-11-08 13:09:03 222.4000 [lb_av] BMI 2019-10-23 13:32:23 29.1800 BP boo 2019-10-23 13:32:23 86.0000 mm[Hg] Bdy height 2019-10-23 13:32:23 73.0000 [in_i] Heart rate 2019-10-23 13:32:23 79.0000 /min Resp rate 2019-10-23 13:32:23 16.0000 /min BP sys 2019-10-23 13:32:23 163.0000 mm[Hg] Body temperature 2019-10-23 13:32:23 97.2000 [degF] Weight 2019-10-23 13:32:23 221.2000 [lb_av] BMI 2019-09-25 14:12:26 28.9500 BP boo 2019-09-25 14:12:26 74.0000 mm[Hg] Bdy height 2019-09-25 14:12:26 73.0000 [in_i] SaO2% BldA PulseOx 2019-09-25 14:12:26 98.0000 % Heart rate 2019-09-25 14:12:26 65.0000 /min Resp rate 2019-09-25 14:12:26 14.0000 /min BP sys 2019-09-25 14:12:26 149.0000 mm[Hg] Body temperature 2019-09-25 14:12:26 97.5000 [degF] Weight 2019-09-25 14:12:26 219.4000 [lb_av] BMI 2019-08-28 13:31:16 29.3700 BP boo 2019-08-28 13:31:16 85.0000 mm[Hg] Bdy height 2019-08-28 13:31:16 73.0000 [in_i] SaO2% BldA PulseOx 2019-08-28 13:31:16 97.0000 % Heart rate 2019-08-28 13:31:16 68.0000 /min Resp rate 2019-08-28 13:31:16 16.0000 /min BP sys 2019-08-28 13:31:16 158.0000 mm[Hg] Body temperature 2019-08-28 13:31:16 98.5000 [degF] Weight 2019-08-28 13:31:16 222.6000 [lb_av] BMI 2019-08-16 13:02:31 28.6300 BP boo 2019-08-16 13:02:31 74.0000 mm[Hg] Bdy height 2019-08-16 13:02:31 73.0000 [in_i] SaO2% BldA PulseOx 2019-08-16 13:02:31 96.0000 % Heart rate 2019-08-16 13:02:31 64.0000 /min Resp rate 2019-08-16 13:02:31 16.0000 /min BP sys 2019-08-16 13:02:31 145.0000 mm[Hg] Body temperature 2019-08-16 13:02:31 97.0000 [degF] Weight 2019-08-16 13:02:31 217.0000 [lb_av] BMI 2019-07-31 14:45:29 28.7900 BP boo 2019-07-31 14:45:29 82.0000 mm[Hg] Bdy height 2019-07-31 14:45:29 73.0000 [in_i] SaO2% BldA PulseOx 2019-07-31 14:45:29 98.0000 % Heart rate 2019-07-31 14:45:29 56.0000 /min Resp rate 2019-07-31 14:45:29 16.0000 /min BP sys 2019-07-31 14:45:29 160.0000 mm[Hg] Body temperature 2019-07-31 14:45:29 98.2000 [degF] Weight 2019-07-31 14:45:29 218.2000 [lb_av] BMI 2019-07-03 14:10:43 28.5500 BP boo 2019-07-03 14:10:43 87.0000 mm[Hg] Bdy height 2019-07-03 14:10:43 73.0000 [in_i] SaO2% BldA PulseOx 2019-07-03 14:10:43 98.0000 % Heart rate 2019-07-03 14:10:43 56.0000 /min Resp rate 2019-07-03 14:10:43 16.0000 /min BP sys 2019-07-03 14:10:43 166.0000 mm[Hg] Body temperature 2019-07-03 14:10:43 98.5000 [degF] Weight 2019-07-03 14:10:43 216.4000 [lb_av] BMI 2019-05-29 14:02:06 29.0500 BP boo 2019-05-29 14:02:06 86.0000 mm[Hg] Bdy height 2019-05-29 14:02:06 73.0000 [in_i] SaO2% BldA PulseOx 2019-05-29 14:02:06 97.0000 % Heart rate 2019-05-29 14:02:06 50.0000 /min Resp rate 2019-05-29 14:02:06 18.0000 /min BP sys 2019-05-29 14:02:06 176.0000 mm[Hg] Body temperature 2019-05-29 14:02:06 98.0000 [degF] Weight 2019-05-29 14:02:06 220.2000 [lb_av] BMI 2019-05-21 14:15:17 28.9500 BP boo 2019-05-21 14:15:17 81.0000 mm[Hg] Bdy height 2019-05-21 14:15:17 73.0000 [in_i] SaO2% BldA PulseOx 2019-05-21 14:15:17 98.0000 % Heart rate 2019-05-21 14:15:17 72.0000 /min Resp rate 2019-05-21 14:15:17 14.0000 /min BP sys 2019-05-21 14:15:17 155.0000 mm[Hg] Body temperature 2019-05-21 14:15:17 97.1000 [degF] Weight 2019-05-21 14:15:17 219.4000 [lb_av] BMI 2019-04-30 13:17:41 28.6000 BP boo 2019-04-30 13:17:41 65.0000 mm[Hg] Bdy height 2019-04-30 13:17:41 73.0000 [in_i] SaO2% BldA PulseOx 2019-04-30 13:17:41 94.0000 % Heart rate 2019-04-30 13:17:41 57.0000 /min Resp rate 2019-04-30 13:17:41 18.0000 /min BP sys 2019-04-30 13:17:41 166.0000 mm[Hg] Body temperature 2019-04-30 13:17:41 97.0000 [degF] Weight 2019-04-30 13:17:41 216.8000 [lb_av] BMI 2019-04-02 13:30:37 28.0500 BP boo 2019-04-02 13:30:37 88.0000 mm[Hg] Bdy height 2019-04-02 13:30:37 73.0000 [in_i] Heart rate 2019-04-02 13:30:37 64.0000 /min Resp rate 2019-04-02 13:30:37 18.0000 /min BP sys 2019-04-02 13:30:37 167.0000 mm[Hg] Body temperature 2019-04-02 13:30:37 97.4000 [degF] Weight 2019-04-02 13:30:37 212.6000 [lb_av] BMI 2019-02-23 14:19:57 27.6300 BP boo 2019-02-23 14:19:57 89.0000 mm[Hg] Bdy height 2019-02-23 14:19:57 73.0000 [in_i] SaO2% BldA PulseOx 2019-02-23 14:19:57 97.0000 % Heart rate 2019-02-23 14:19:57 69.0000 /min Resp rate 2019-02-23 14:19:57 18.0000 /min BP sys 2019-02-23 14:19:57 164.0000 mm[Hg] Body temperature 2019-02-23 14:19:57 97.1000 [degF] Weight 2019-02-23 14:19:57 209.4000 [lb_av] BMI 2019-01-26 14:29:32 26.8600 BP boo 2019-01-26 14:29:32 91.0000 mm[Hg] Bdy height 2019-01-26 14:29:32 73.0000 [in_i] SaO2% BldA PulseOx 2019-01-26 14:29:32 97.0000 % Heart rate 2019-01-26 14:29:32 66.0000 /min Resp rate 2019-01-26 14:29:32 18.0000 /min BP sys 2019-01-26 14:29:32 181.0000 mm[Hg] Body temperature 2019-01-26 14:29:32 98.2000 [degF] Weight 2019-01-26 14:29:32 203.6000 [lb_av] BMI 2018-12-22 13:14:23 27.1800 BP boo 2018-12-22 13:14:23 91.0000 mm[Hg] Bdy height 2018-12-22 13:14:23 73.0000 [in_i] Heart rate 2018-12-22 13:14:23 47.0000 /min Resp rate 2018-12-22 13:14:23 18.0000 /min BP sys 2018-12-22 13:14:23 188.0000 mm[Hg] Body temperature 2018-12-22 13:14:23 96.6000 [degF] Weight 2018-12-22 13:14:23 206.0000 [lb_av] BMI 2018-12-08 13:31:41 26.9700 BP boo 2018-12-08 13:31:41 86.0000 mm[Hg] Bdy height 2018-12-08 13:31:41 73.0000 [in_i] SaO2% BldA PulseOx 2018-12-08 13:31:41 98.0000 % Heart rate 2018-12-08 13:31:41 47.0000 /min Resp rate 2018-12-08 13:31:41 16.0000 /min BP sys 2018-12-08 13:31:41 181.0000 mm[Hg] Body temperature 2018-12-08 13:31:41 97.3000 [degF] Weight 2018-12-08 13:31:41 204.4000 [lb_av] BMI 2018-11-24 13:03:26 26.9100 BP boo 2018-11-24 13:03:26 70.0000 mm[Hg] Bdy height 2018-11-24 13:03:26 73.0000 [in_i] Heart rate 2018-11-24 13:03:26 43.0000 /min Resp rate 2018-11-24 13:03:26 18.0000 /min BP sys 2018-11-24 13:03:26 178.0000 mm[Hg] Body temperature 2018-11-24 13:03:26 98.0000 [degF] Weight 2018-11-24 13:03:26 204.0000 [lb_av] BMI 2018-10-27 13:16:39 27.0500 BP boo 2018-10-27 13:16:39 83.0000 mm[Hg] Bdy height 2018-10-27 13:16:39 73.0000 [in_i] Heart rate 2018-10-27 13:16:39 67.0000 /min Resp rate 2018-10-27 13:16:39 16.0000 /min BP sys 2018-10-27 13:16:39 151.0000 mm[Hg] Body temperature 2018-10-27 13:16:39 96.7000 [degF] Weight 2018-10-27 13:16:39 205.0000 [lb_av] BMI 2018-09-29 14:22:08 26.4700 BP boo 2018-09-29 14:22:08 69.0000 mm[Hg] Bdy height 2018-09-29 14:22:08 73.0000 [in_i] Heart rate 2018-09-29 14:22:08 67.0000 /min Resp rate 2018-09-29 14:22:08 18.0000 /min BP sys 2018-09-29 14:22:08 152.0000 mm[Hg] Body temperature 2018-09-29 14:22:08 97.5000 [degF] Weight 2018-09-29 14:22:08 200.6000 [lb_av] BMI 2018-09-01 13:08:25 26.0200 BP boo 2018-09-01 13:08:25 71.0000 mm[Hg] Bdy height 2018-09-01 13:08:25 73.0000 [in_i] Heart rate 2018-09-01 13:08:25 57.0000 /min Resp rate 2018-09-01 13:08:25 16.0000 /min BP sys 2018-09-01 13:08:25 157.0000 mm[Hg] Body temperature 2018-09-01 13:08:25 97.9000 [degF] Weight 2018-09-01 13:08:25 197.2000 [lb_av] BMI 2018-08-23 10:30:50 25.6500 BP boo 2018-08-23 10:30:50 77.0000 mm[Hg] Bdy height 2018-08-23 10:30:50 73.0000 [in_i] Heart rate 2018-08-23 10:30:50 64.0000 /min Resp rate 2018-08-23 10:30:50 16.0000 /min BP sys 2018-08-23 10:30:50 150.0000 mm[Hg] Body temperature 2018-08-23 10:30:50 97.5000 [degF] Weight 2018-08-23 10:30:50 194.4000 [lb_av]
== END ==
LOC: RAD 07:38
PROVIDERS: ATTEND Internal Medicine
DX: C61 Malignant neoplasm of prostate (principal); C79.51 Secondary malignant neoplasm of bone
CPT/HCPCS: 82565; 78306; 71260; 74177; A9503; Q9969